=== PATIENT | male | born 1955 | race Caucasian/White ===

== ENCOUNTER → 2016-06-25 12:59 | Outpatient (CLI) | payer OTHER ==
[2013-04-12 08:46] VITALS: BMI 27.2
[~2016-06-25 12:59] MED LIST: ASPIRIN81 MG PO; LASIX20 MG PO; LUNESTA3 MG PO; MULTIPLE VITAMI1 TA1 PO; PLAVIX75 MG PO; RANEXA500 MG PO
[2016-08-05 12:45] VITALS: BMI 29.2
== END | disposition home or self-care (01) ==
LOC: D.US 12:59
DX: M79.605 Pain in left leg (principal); M79.604 Pain in right leg; R20.0 Anesthesia of skin

== ENCOUNTER → 2016-07-28 07:20 | Outpatient (CLI) | payer OTHER ==
[2013-04-12 08:46] VITALS: BMI 27.2
[2016-08-05 12:45] VITALS: BMI 29.2
== END | disposition home or self-care (01) ==
LOC: D.CT 07:20
DX: I70.213 Atherosclerosis of native arteries of extremities with intermittent claudication, bilateral legs (principal)

== ENCOUNTER 2016-08-05 05:00 | Inpatient (IN) | payer OTHER ==
[2016-08-04 15:06] LABS: HEMATOCRIT 46.8 % (42.0-54.0); MCH 34.2 pg (26.0-34.0); MCHC 34.2 g/dL (31.0-37.0); MEAN PLATELET VOLUME 11.1 fL (7.4-10.4); RBC 4.68 10x6/uL (4.20-6.10); RDW 13.4 % (11.5-14.5); WBC 11.4 10x3/uL (4.8-10.8)
[2016-08-04 15:13] LABS: APPEARANCE CLEAR (CLEAR); BILIRUBIN NEGATIVE (NEGATIVE); COLOR YELLOW (YELLOW); GLUCOSE NEGATIVE (NEGATIVE); KETONE NEGATIVE (NEGATIVE); LEUKOCYTE ESTERASE NEGATIVE (NEGATIVE); NITRITE NEGATIVE (NEGATIVE); PROTEIN NEGATIVE (NEGATIVE); UROBILINOGEN NORMAL (NORMAL)
[2016-08-04 15:18] LABS: APTT 30.7 SECONDS (22.8-39.4); INR 0.95 (0.85-1.17); PROTIME 12.5 SECONDS (11.6-15.0)
[2016-08-04 15:24] LABS: ALKALINE PHOSPHATASE 82 U/L (46-116); ALT (SGPT) 28 U/L (10-68); BILIRUBIN - TOTAL 0.76 mg/dL (0.2-1.3); CALC OSMOLALITY 277 mosm/kg (275-300); CALCIUM 9.4 mg/dL (8.5-10.1); CARBON DIOXIDE 26.7 mmol/L (21.0-32.0); CHLORIDE - SERUM 104 mmol/L (98-107); GLUCOSE 94 mg/dL (74-106); POTASSIUM - SERUM 4.4 mmol/L (3.5-5.1); PROTEIN - SERUM 7.7 g/dL (6.4-8.2); SODIUM 140 mmol/L (136-145); UREA NITROGEN 10 mg/dL (7-18); eGFR NON AFRICAN AMERICAN 80 mL/min (90-120)
[2016-08-05] VITALS (20 sets, daily range): BP systolic 100–131; BP diastolic 47–75; Ht 175.3 cm; Wt 89.7 kg
[~2016-08-05] VITALS: Ht 175.3 cm; Wt 89.7 kg
--- NOTE | 2016-08-05 12:13 | NUR ---
RECEIVED TO [facility] VIA BED.
--- NOTE | 2016-08-05 13:40 | NUR ---
AT BEDSIDE, UPDATED BY DR GASTON.
--- NOTE | 2016-08-05 14:30 | NUR ---
PT REPOSITIONED FOR COMFORT. CALL LIGHT PLACED IN REACH.
--- NOTE | 2016-08-05 16:45 | NUR ---
REPOSITIONED IN BED. DINNER TRAY PLACED IN REACH. GROIN DRESSING C/D/I. DENIES NEEDS AT THIS TIME. WILL CONTINUE TO ASSESS.
--- NOTE | 2016-08-05 18:00 | NUR ---
VISITORS AT BEDSIDE. DENIES NEEDS AT THIS TIME. NO ACUTE CHANGES NOTED.
--- NOTE | 2016-08-05 19:20 | NUR ---
REPORT REC'D AND CARE ASSUMED ,REC'D PT SITTING UP IN BED WATCHING TV, AWAKE, ALERT AND ORIENTED X 4, RDLSCL DRSG CDI WITH D51/2NS @ 100CC/HR, LEFT GROIN DRSG CDI NO BLEEDING OR HEMATOMA NOTED, CRITICORE MELCHOR PATENT DRAINING CLEAR YELLOW URINE, BILAT LOWER EXT'S WARM, PP BY DOPPLER, PT DENIES PAIN OR NEEDS, SR UP X 2, BED IN LOW POSITION, CALL LIGHT IN REACH.
--- NOTE | 2016-08-05 21:00 | NUR ---
EVENING MEDS GIVEN, AT BS, UPDATE GIVEN AND QUESTIONS ANSWERED.
--- NOTE | 2016-08-05 21:30 | NUR ---
PT CONCERNED ABOUT CLOTHING LEFT IN OUTPATIENT, ICEBOX MAN NOTIFIED
--- NOTE | 2016-08-05 23:30 | NUR ---
REASSESSMENT COMPLETED, PT SITTING UP IN BED WATCHING TV, VSS, DENIES PAIN OR OTHER NEEDS, VSS.
[2016-08-06] VITALS (12 sets, daily range): BP systolic 101–132; BP diastolic 52–76
--- NOTE | 2016-08-06 00:15 | NUR ---
ROUTINE MED GIVEN, LEFT GROIN DRSG CDI, NO BLEEDING OR HEMATOMA, PP BY DOPPLER
--- NOTE | 2016-08-06 02:00 | NUR ---
NO CHANGES IN STATUS
--- NOTE | 2016-08-06 04:00 | NUR ---
PT ASSISTED TO REPOSITION UP IN BED FOR COMFORT, VSS, WILL CONT TO MONITOR FOR CHANGES.
--- NOTE | 2016-08-06 05:50 | NUR ---
AM LAB DRAWN FROM CVL AND SENT TO LAB
--- NOTE | 2016-08-06 06:00 | NUR ---
NO VISITORS IN AT THIS TIME, OUTPATIENT CALLED REGARDING PT CLOTHING, CLOTHING FOUND WILL RETRIEVE FOR PT.
[2016-08-06 06:24] LABS: MCH 33.3 pg (26.0-34.0); MCHC 33.2 g/dL (31.0-37.0); MCV 100.5 fL (80.0-100.0); RDW 13.6 % (11.5-14.5); WBC 11.3 10x3/uL (4.8-10.8)
[2016-08-06 06:36] LABS: HEMATOCRIT 36.8 % (42.0-54.0); HEMOGLOBIN 12.2 g/dL (13.5-17.5); RBC 3.66 10x6/uL (4.20-6.10)
[2016-08-06 06:42] LABS: ALBUMIN 2.8 g/dL (3.4-5.0); ALKALINE PHOSPHATASE 63 U/L (46-116); ALT (SGPT) 21 U/L (10-68); CALC OSMOLALITY 274 mosm/kg (275-300); CALCIUM 8.2 mg/dL (8.5-10.1); CHLORIDE - SERUM 103 mmol/L (98-107); GLUCOSE 117 mg/dL (74-106); POTASSIUM - SERUM 3.6 mmol/L (3.5-5.1); PROTEIN - SERUM 5.8 g/dL (6.4-8.2); SODIUM 138 mmol/L (136-145); UREA NITROGEN 8 mg/dL (7-18); eGFR NON AFRICAN AMERICAN 80 mL/min (90-120)
--- NOTE | 2016-08-06 07:00 | NUR ---
Received report and assumed care of patient. Patient is currently awake, alert and oriented in bed. Right subclavian CVL with D51/2 @ 100 infusing. CVP zereod and levelized=8. Room air, occasional unproductive cough, [id number] on IS. Sinus rhythm on CM. S1 S2. Duarte cath draining clear yellow urine. Afebrile. Patient denies pain, c/o being uncomfortable and numbness bilateral legs. Left groin access site dressing is CDI, site is soft to touch. Dorsalis Pedis pulses via doppler bilaterally. Feet warm to touch. See shift assessment for all findings.
--- NOTE | 2016-08-06 08:15 | NUR ---
Patient up to chair with moderate assistance. Set up with breakfast tray. at bedside. Call light within reach. No additional needs.
--- NOTE | 2016-08-06 08:45 | NUR ---
in to see patient. Okay to d/c home.
[2016-08-06] MEDS ORDERED: PLAVIX75 MG PO (08:57)
--- NOTE | 2016-08-06 09:51 | NUR ---
Patient ambulated with Tre with PT, tolerated well.
--- NOTE | 2016-08-06 09:55 | NUR ---
Patient up to commode with stand by assist. Voided 200 CC urine.
--- NOTE | 2016-08-06 11:20 | NUR ---
08/06/2016 11:18 DCP: Discharge Planning Patient Name: LUZ URRUTIA Admission Status: Elective Accout number: [id number] Admission Date: 08-05-2016 : 1955 Admission Diagnosis: Attending: JESE Current LOS: 1 Anticipated DC Date: 08-06-2016 Planned Disposition: Home Primary Insurance: [facility] Discharge Planning Comments: DC order rec'd. Spoke with spouse via telephone. Spouse states they live together in a single level home. She reports patient is independent with all ADL's & IADL's, does not use any assistive devices for mobility. He will return home with his . No needs identified or verbalized at this time. Football Pad Repairer: Rocio Salde
--- NOTE | 2016-08-08 11:31 | OP ---
PATIENT NAME: LUZ URRUTIA MEDICAL RECORD: [id number] :51 LOCATION:[facility] ADMISSION DATE:08/05/16 SURGEON: GUILLE GASTON MD DATE OF OPERATION: 08/05/2016 SURGEON: Guille Gaston MD. ANESTHESIA: General endotracheal, Dr. Prasad. OPERATION PERFORMED: Complex endovascular revascularization of his right and left lower extremities. PREOPERATIVE DIAGNOSES: Severe claudication of the lower extremities bilaterally with rest pain. POSTOPERATIVE DIAGNOSES: Severe left iliac artery stenosis of both common and external iliac arteries, severe stenosis of the right superficial femoral artery and in-stent stenosis of the right superficial femoral artery stent, severe stenosis of the posterior tibioperoneal artery and posterior tibial arteries as well as high-grade stenosis in the proximal 1/3 of the anterior tibial artery. INDICATION FOR OPERATION: Severe claudication and rest pain. FINDINGS OF THE OPERATION: The fluoro time of 29 minutes and 8 seconds. Contrast was 267 mL. ESTIMATED BLOOD LOSS: Less than 20 mL. 1. Left retrograde common femoral artery sheath placement, 4-Namibian, 5-Namibian, 7-Namibian long. 2. Left retrograde external iliac arteriogram. 3. Selective right common iliac artery arteriogram. 4. Right common femoral artery arteriogram. 5. Right superficial femoral artery arteriogram. 6. Right popliteal arteriogram. 7. Right posterior tibioperoneal artery trunk arteriogram. 8. Jetstream atherectomy of the posterior tibial artery and posterior tibioperoneal artery trunk. 9. Angioplasty of the posterior tibial and peroneal artery. 10. Drug-eluting stent, right posterior tibial artery and posterior tibioperoneal artery trunk. 11. Angioplasty of the proximal anterior tibial artery. 12. Viabahn stent, 5 x 50, popliteal artery. 13. Jetstream atherectomy of the superficial femoral artery and in-stent stenosis of the proximal popliteal artery. 14. Stent, 6 x 200, in the stent extending to the upper superficial femoral artery. 15. Stent, 6 x 80, in-stent addition to 2 cm distal to the stent. 16. Stent, 8 x 27, aorta and left common iliac artery. 17. Stent, 8 x 27, left external iliac artery. AORTOGRAM: 1. Retrograde left external iliac arteriogram demonstrates severe stenosis of the proximal external iliac artery and high-grade stenosis at the aorta and left common iliac artery. OPERATIVE REPORT [id number] LUZ URRUTIA 2. Right common iliac artery demonstrates diffuse atherosclerosis, but no significant stenotic lesions. 3. Right common femoral arteriogram demonstrates good flow into the profunda and superficial femoral artery. 4. Right superficial femoral arteriogram demonstrates diffuse stenosis throughout the superficial femoral artery with high-grade stenosis in the previously placed stent at the popliteal, superficial femoral artery junction. 5. Popliteal arteriogram demonstrates an open vessel with more severe distal disease and open orifice to the anterior tibial artery. The posterior tibial and peroneal artery trunk was severely and diffusely diseased as well as the takeoff of the peroneal and posterior tibial arteries. 6. Post-Jetstream atherectomy of the posterior tibial and peroneal artery demonstrates multiple areas of intimal disruption and dissections. 7. Angioplasty of posterior tibioperoneal artery demonstrates continued stenosis of the area. 8. Drug-eluting stent of tibial artery and posterior tibioperoneal artery trunk demonstrates excellent flow through the stenotic area of the posterior tibial artery to the ankle with good flow through the peroneal artery as well. 9. Angioplasty of the anterior tibial artery in its proximal 1/3 demonstrates improved flow. Spasm was relieved with papaverine. 10. Viabahn stent placement, right knee and popliteal artery, 5 x 50, demonstrates excellent result, no residual stenosis, good runoff through the trifurcation. 11. Jetstream atherectomy of the superficial femoral artery and in-stent stenosis demonstrates improved flow with continued obstruction and dissection in the stent. A 6 x 200 stent was placed in the superior portion of the stent and superficial femoral artery with good proximal result; however, distally, there was still loose shawnee-intima in the previously placed stent. 12. Status post stenting with a 6 x 80 below the original stent demonstrates excellent flow through the superficial femoral artery through the stents into the posterior tibial artery and peroneal artery trunk. 13. Status post stenting of the aorta and left common iliac artery demonstrates excellent result with no residual stenosis and open aortic orifice. 14. Stent, 8 x 27, in the left external iliac artery demonstrates an excellent result with no residual stenosis. DESCRIPTION OF PROCEDURE: After informed consent and adequate preoperative medication evaluation, the patient was brought to the operating room, placed on the table in the supine position. After induction of general endotracheal anesthesia and application of appropriate monitoring devices, the abdomen, both groins and right leg were prepped and draped in a sterile field, utilizing Betadine scrub, alcohol, and Betadine solution. A Betadine-impregnated drape was also used. Utilizing a micropuncture technique retrogradely through the left common femoral artery, a 4-Namibian sheath was placed. This was exchanged for a 5-Namibian sheath. A retrograde arteriogram demonstrated the anatomy with severe stenosis of the takeoff of the common iliac artery for approximately 2 cm and severe stenosis of the external iliac artery. There is total occlusion of the left hypogastric. Utilizing a rim catheter and Glidewire, the right superficial femoral artery was selected. An exchange was made for a 7-Namibian long sheath that was carefully placed through the stenotic areas on the left and placed in the common iliac artery. Arteriogram demonstrated no stenosis, but diffuse disease in the right common iliac and external iliac artery. The sheath was then advanced to the common femoral artery and arteriogram demonstrated good flow into the profunda and superficial femoral artery. The superficial femoral artery was then selected, cannulated and arteriogram demonstrated diffuse OPERATIVE REPORT [id number] LUZ URRUTIA disease throughout the proximal portion of the superficial femoral artery with high-grade in-stent stenosis. Next, a Prowers wire was placed into the popliteal artery and a 0.035 Quick-Cross was placed into the popliteal artery. Arteriogram demonstrated severe disease in the posterior tibioperoneal artery trunk in the takeoff of the peroneal artery and takeoff of the posterior tibial artery. There was also high-grade stenosis in the proximal anterior tibial artery. The posterior tibioperoneal artery was cannulated and arteriogram demonstrated the severe stenosis in all 3 vessels. A wire was placed into the peroneal artery and a Jetstream atherectomy was performed of the posterior tibioperoneal artery trunk and peroneal artery. There was disrupted intima and dissections with a poor result. Therefore, a Prowers rakesh wire was placed alongside the previous wire and the posterior tibial artery was cannulated which was the larger of the 2 vessels. Utilizing a 4 x 38 drug-eluting stent, the posterior tibial artery and posterior tibioperoneal artery trunk was stented with good flow continuing in the peroneal artery. This wire was left in place in the peroneal artery. The anterior tibial artery was then cannulated and arteriogram demonstrated the severe proximal stenosis. This was dilated with a 3.0 balloon with a good result. Spasm was relieved with papaverine. Attention was then turned toward the popliteal artery. There was disruption of the intima and dissection; therefore, a 5 x 50 Viabahn stent was placed in the popliteal artery. Attention was then turned towards the superficial femoral artery. The Prowers wire was removed and a Jetstream atherectomy was performed of the superficial femoral artery and in-stent stenosis with improved flow, but suboptimal. Utilizing a 6-mm balloon, the stent and artery was angioplastied; however, there was still residual disease. Therefore, a 6 x 200 stent was placed from the proximal portion of the previously placed stent to the proximal superficial femoral artery with a good result. There was a residual disruption in the stent. Therefore, a 6 x 80 stent was placed from the newly placed stent for approximately 2 cm distally into the proximal popliteal artery with an excellent result. Arteriogram demonstrated good flow through these stents with 3-vessel runoff to the foot. Attention was then turned towards the aorta and left common iliac artery. Utilizing a stent, balloon expandable, 8 x 27, was then deployed in the aorta and common iliac artery with a good result. The stent does not protrude into the aorta itself. The external iliac artery was then addressed and an 8 x 27 balloon expandable stent was placed. A retrograde arteriogram demonstrated excellent flow through these stents as well as contrast into the aorta with runoff into the right common iliac artery as well. The catheter sheath and wires were removed and an 8-Namibian Angio-Seal was deployed with good hemostatic results. The patient was given a calculated dose of protamine to reverse the heparin. Hemostasis was assured. The patient had good distal pulses and perfusion. The patient tolerated the procedure well and was transferred to CV ICU in satisfactory condition. TRANSINT:[id number] Voice Confirmation ID: [id number] DOCUMENT ID: [id number] GUILLE GASTON MD at 1131 CC: [id number] DICTATION DATE: 08/05/16 1231 AUTOMATED PROCESS OPERATOR: 08/05/16 1335 DIS IN 08/06/16 [place] [id number] [place] [id number]
--- NOTE | 2016-08-08 11:31 | HP ---
PATIENT: LUZ URRUTIA MEDICAL RECORD: [id number] ACCOUNT: [id number] LOCATION:[facility] D.CV06 : 53 ADMISSION DATE: 08/05/16 HISTORY AND PHYSICAL EXAMINATION NameLUZ URRUTIA (61yo, M) ID# [id number]. Date/Time07/30/2016 09:96YKPYP86 1955Service Dept.NPP[facility] ClinicProviderEDAPRYL GASTON MDInsuranceMed Primary: [facility] () Insurance # : [id number] Referring Provider Name : DORI ESTEVEZ Employer Name : SELF EMPLOYED Prescription: ESI1 - Member is eligible. Chief Complaint Followup: Intermittent claudication due to atherosclerosis of [place] artery of limb Followup: Peripheral arterial occlusive disease s/p CABG 02/07/97 RTC discuss CTA AFRO Patient's Care Team Referring Provider (): DORI ESTEVEZ: [address] [phone], , Corn Miller: KENDALL OSEGUERA MD: [address] [place] [address], [place] [address], , Patient's Pharmacies [facility] [phone] (ERX): [phone] [facility] [id number], , Vitals BP:124/80 sitting R arm 07/30/2016 09:04 amHR:60R/R 07/30/2016 09:04 amHt:5 ft 10 in 07/30/2016 09:00 amWt:198 lbs 07/30/2016 09:04 amBMI:28.4 07/30/2016 09:04 amAllergies Reviewed Allergies NKDAMedications Reviewed Medications Asprin Ec Low Dose 81 mg tablet,delayed release Take 1 tablet(s) every day by oral route.01/15/11 enteredTracie StanleyLunesta 3 mg tablet Take 1 tablet(s) every day by oral route.07/21/16 [facility] RonNitromist 400 mcg/spray translingual aerosol [place] by translingual route.07/21/16 [facility] WilsonRanexa 500 mg tablet,extended release Take 1 tablet(s) twice a day by oral route.07/21/16 [facility] Ronzolpidem 10 mg /24/17 filledMEDCOProblems Reviewed Problems Intermittent claudication due to atherosclerosis of [place] artery of limb - Onset: 07/01/2013 Peripheral arterial occlusive disease - Onset: 07/21/2016 Coronary arteriosclerosis - Onset: 07/21/2016 [place] a recent coronary s tent by Dr. Oseguera. No site of pain at the hernia repair. No reherniation. No evidence of incisional infections. Family History Reviewed Family History Mother- Malignant neoplastic diseasePaternal Grandfather- Malignant neoplastic HISTORY AND PHYSICAL [id number] LUZ URRUTIA diseasepositive for coronary artery disease, colon cancer and type 2 diabetesSocial History Reviewed Social History Cardiology Family history of heart disease?: Y Smoking Status: Current every day smoker Smoker (1 05/04 PPD) High Cholesterol: N High blood pressure: N Overweight: Y Obese: Y Diabetes: N Alcohol intake: None Occupation: retired (Notes: partial disabled) Marital status: Surgical History Reviewed Surgical History Hernia repair w/mesh - 01/14/2011 CABG - 02/07/[address] Wheat 1999 multiple stents placed Past Medical History Reviewed Past Medical History Heart Disease: Y Heart Failure: Y High Blood Pressure: Y Pain in legs when walking: Y Notes: chronic insomnia, ED, LBP, opioid dependence (continuous), anxi ety, hearing loss, CAD, male hypogonadism, LE neuropathy Documents for Discussion N/A Screening None recorded. HPI Peripheral Vascular Disease Reported by patient. Location: calf Quality: cramping; burning; weakness Severity: interferes with normal activity life limiting claudication of the lower extremities ROS ROS as noted in the HPI Physical Exam Patient is a 61-year-old male. Constitutional: General Appearance well nourished and developed and healthy-appearing. Level of Distress NAD. Ambulation ambulating normally. Cardiovascular: Apical Impulse not displaced or no thrill. Heart Auscultation normal s1 and s2; no murmurs, rubs, or gallops; and RRR. Arterial Pulses no abdominal aorta bruits or femoral bruits; popliteal not palpable (nonpalpable bilaterally) and dorsalis pedis not palpable (nonpalpable bilaterally nor posterior tibial); and 2+ bilateral, carotid 2+ bilateral, and femoral 2+ bilateral. Edema no HISTORY AND PHYSICAL [id number] LUZ URRUTIA edema or varicosities. Lungs: Repiratory Effort no dyspnea. Percussion no dullness or flatness and hyperresonance . Auscultation no wheezing, rhonchi, or rales / crackles and breathing sounds normal, good air movement, and CTA except as noted. Abdomen: Bowl Sounds normal. Inspe ction and Palpation no tenderness, guarding, masses, or rebound tenderness and soft and non-distended. Liver non-tender and no hepatomegaly. Spleen non-tender and no splenomegaly. Hernia none palpable. Musculoskeletal System: Gait And Stance normal gait and stance. Digits and Nails normal nails and no cyanosis. Neurologic: Cranial Nerves grossly intact. Reflexes DTRs 2+ bilaterally throughout. Sensation grossly intact. Lymph Nodes: Lymph Nodes no cervical LAD, supraclavicular LAD, axillary LAD, or inguinal LAD. Eyes: Lids and Conjunctivae no discharge or pallor and non-injected. Pupils PERRLA. Cornea grossly intact. EOM EOMI. Lens clear. Sclerae non-icteric. Neck: Neck no masses, enlarged lymph nodes, or carotid bruits and supple and trachea midline. Thyroid no enlargement or nodules and non-tender. Skin: Inspection and Palpation no rash, lesions, ulcers, jaundice, or abnormal nevi. Assessment / Plan severe bilateral peripheral arterial disease Severe proximal left internal iliac artery stenosis Significant right external iliac artery stenosis Significant in-stent stenosis right superficial femoral artery Chronic total occlusion of the left superficial femoral artery 1. Intermittent claudication due to atherosclerosis of [place] artery of limb I70 .219: Atherosclerosis of [place] arteries of extremities with intermittent claudication, unspecified extremity 2. Peripheral arterial occlusive disease I73.9: Peripheral vascular disease, unspecified PERIPHERAL ARTERIAL DISEASE OF THE LEG: CARE INSTRUCTIONS Discussion Notes will need jetstream atherectomy of the right superficial femoral in-stent stenosis Balloon-expandable stent of the right external iliac artery Balloon-expandable stent of the left common iliac artery We'll start with [id number] intervention followed by intervention only chronic total occlusion of the left superficial femoral artery versus femoral-popliteal bypass. Return to Office None recorded. HISTORY AND PHYSICAL [id number] LUZ URRUTIA EDWARD MD at 1131 CC: [id number] DICTATION DATE: 07/30/16 0900 SALON CUSTOMER EXPERIENCE SPECIALIST: RIZWAN 08/03/16 1450 DIS IN 08/06/16 [facility] [address] [place] [address]
== END 2016-08-06 12:15 | disposition home or self-care (01) | DRG 271 ==
LOC: D.CVICU 05:00 → D.SDCHOLD 05:00 → D.CVICU 11:44
PROVIDERS: ADMIT Internal Medicine Cardiovascular Disease
PROC: 047R34Z Dilation of Right Posterior Tibial Artery with Drug-eluting Intraluminal Device, Percutaneous Approach (ICD-10-PCS; principal; 2016-08-05 07:30)
PROC: 04CP3ZZ Extirpation of Matter from Right Anterior Tibial Artery, Percutaneous Approach (ICD-10-PCS; principal; 2016-08-05 07:30)
PROC: 04CR3ZZ Extirpation of Matter from Right Posterior Tibial Artery, Percutaneous Approach (ICD-10-PCS; principal; 2016-08-05 07:30)
PROC: 047P3ZZ Dilation of Right Anterior Tibial Artery, Percutaneous Approach (ICD-10-PCS; principal; 2016-08-05 07:30)
PROC: 047T34Z Dilation of Right Peroneal Artery with Drug-eluting Intraluminal Device, Percutaneous Approach (ICD-10-PCS; principal; 2016-08-05 07:30)
PROC: 04CT3ZZ Extirpation of Matter from Right Peroneal Artery, Percutaneous Approach (ICD-10-PCS; principal; 2016-08-05 07:30)
DX: I70.223 Atherosclerosis of native arteries of extremities with rest pain, bilateral legs (principal); T82.856A Stenosis of peripheral vascular stent, initial encounter; I25.10 Atherosclerotic heart disease of native coronary artery without angina pectoris; I10 Essential (primary) hypertension; Z95.1 Presence of aortocoronary bypass graft; I25.2 Old myocardial infarction; F17.200 Nicotine dependence, unspecified, uncomplicated

== ENCOUNTER 2016-09-07 13:39 | Emergency (ER) | payer OTHER ==
[2016-08-05 12:45] VITALS: BMI 29.2
[2016-09-07 16:31] LABS: BASOPHILS 0.2 % (0-2); HEMATOCRIT 46.7 % (42.0-54.0); HEMOGLOBIN 15.8 g/dL (13.5-17.5); IMMATURE GRANULOCYTES 0.1 % (0-5); MCH 33.8 pg (26.0-34.0); MCHC 33.8 g/dL (31.0-37.0); MEAN PLATELET VOLUME 10.8 fL (7.4-10.4); MONOCYTES 7.9 % (2-11); NEUTROPHILS 55.8 % (40-80); RBC 4.67 10x6/uL (4.20-6.10); RDW 13.1 % (11.5-14.5); WBC 9.2 10x3/uL (4.8-10.8)
[2016-09-07 16:46] LABS: PLATELET COUNT 189 10x3/uL (130-400)
[2016-09-07 16:56] LABS: ALKALINE PHOSPHATASE 97 U/L (46-116); ALT (SGPT) 29 U/L (10-68); BILIRUBIN - TOTAL 0.68 mg/dL (0.2-1.3); CALC OSMOLALITY 284 mosm/kg (275-300); CALCIUM 10.1 mg/dL (8.5-10.1); CARBON DIOXIDE 32.8 mmol/L (21.0-32.0); CHLORIDE - SERUM 106 mmol/L (98-107); CREATININE - SERUM 1.2 mg/dL (0.6-1.3); GLUCOSE 104 mg/dL (74-106); POTASSIUM - SERUM 5.9 mmol/L (3.5-5.1); PROTEIN - SERUM 7.7 g/dL (6.4-8.2); SODIUM 144 mmol/L (136-145); UREA NITROGEN 7 mg/dL (7-18); eGFR NON AFRICAN AMERICAN 65 mL/min (90-120)
[2016-09-07 17:00] LABS: AMYLASE - SERUM 65 U/L (25-115); CREATINE KINASE 143 UL (21-232); LIPASE 157 U/L (73-393)
[2016-09-07 17:10] LABS: TROPONIN-I < 0.017 ng/mL (0.000-0.060)
== END 2016-09-07 18:16 | disposition home or self-care (01) ==
LOC: D.ER 13:39
PROVIDERS: Nurse Practitioner Family
DX: R10.13 Epigastric pain (principal); K59.00 Constipation, unspecified; E86.0 Dehydration; I49.3 Ventricular premature depolarization

== ENCOUNTER → 2016-11-09 15:30 | Outpatient (CLI) | payer OTHER ==
[2016-08-05 12:45] VITALS: BMI 29.2
== END | disposition home or self-care (01) ==
LOC: D.US 15:30 → D.CT 17:00
DX: M54.9 Dorsalgia, unspecified (principal); N50.812 Left testicular pain; N50.811 Right testicular pain; K66.1 Hemoperitoneum; I99.8 Other disorder of circulatory system

== ENCOUNTER 2016-11-12 09:25 | Emergency (ER) | payer OTHER ==
[2016-08-05 12:45] VITALS: BMI 29.2
[2016-11-12 10:33] LABS: BASOPHILS 0 % (0-2); EOSINOPHILS 0.5 % (0-7); HEMATOCRIT 39.7 % (42.0-54.0); HEMOGLOBIN 13.6 g/dL (13.5-17.5); IMMATURE GRANULOCYTES 0.2 % (0-5); LYMPHOCYTES 31.4 % (15-50); MCH 33.7 pg (26.0-34.0); MCHC 34.3 g/dL (31.0-37.0); MCV 98.3 fL (80.0-100.0); MEAN PLATELET VOLUME 11.1 fL (7.4-10.4); MONOCYTES 7.4 % (2-11); NEUTROPHILS 60.5 % (40-80); RBC 4.04 10x6/uL (4.20-6.10); RDW 13.5 % (11.5-14.5); WBC 6.1 10x3/uL (4.8-10.8)
[2016-11-12 10:36] LABS: PLATELET COUNT 123 10x3/uL (130-400)
[2016-11-12 10:46] LABS: ALBUMIN 3.6 g/dL (3.4-5.0); ALKALINE PHOSPHATASE 63 U/L (46-116); ALT (SGPT) 23 U/L (10-68); BILIRUBIN - TOTAL 0.97 mg/dL (0.2-1.3); CALC OSMOLALITY 281 mosm/kg (275-300); CALCIUM 9.6 mg/dL (8.5-10.1); CARBON DIOXIDE 25.5 mmol/L (21.0-32.0); CHLORIDE - SERUM 108 mmol/L (98-107); CREATININE - SERUM 0.9 mg/dL (0.6-1.3); GLUCOSE 106 mg/dL (74-106); POTASSIUM - SERUM 4.7 mmol/L (3.5-5.1); PROTEIN - SERUM 7.2 g/dL (6.4-8.2); SODIUM 143 mmol/L (136-145); UREA NITROGEN 4 mg/dL (7-18); eGFR NON AFRICAN AMERICAN > 90 mL/min (90-120)
[2016-11-12 11:29] LABS: APPEARANCE CLEAR (CLEAR); BILIRUBIN NEGATIVE (NEGATIVE); COLOR STRAW (YELLOW); GLUCOSE NEGATIVE (NEGATIVE); KETONE NEGATIVE (NEGATIVE); LEUKOCYTE ESTERASE NEGATIVE (NEGATIVE); NITRITE NEGATIVE (NEGATIVE); PROTEIN NEGATIVE (NEGATIVE); SPECIFIC GRAVITY 1.005 (1.005-1.020); UROBILINOGEN NORMAL (NORMAL)
== END 2016-11-12 12:16 | disposition home or self-care (01) ==
LOC: D.ER 09:25
PROVIDERS: Nurse Practitioner Family
DX: R10.9 Unspecified abdominal pain (principal)

== ENCOUNTER 2016-11-13 18:43 | Emergency (ER) | payer OTHER ==
[2016-08-05 12:45] VITALS: BMI 29.2
== END 2016-11-13 21:45 | disposition home or self-care (01) ==
LOC: D.ER 18:43
DX: N45.1 Epididymitis (principal)

== ENCOUNTER → 2017-03-02 09:49 | Outpatient (CLI) | payer OTHER ==
[2016-08-05 12:45] VITALS: BMI 29.2
== END | disposition home or self-care (01) ==
LOC: D.CT 09:49
DX: R10.9 Unspecified abdominal pain (principal); R10.2 Pelvic and perineal pain

== ENCOUNTER 2017-06-19 19:22 | Emergency (ER) | payer OTHER ==
[2016-08-05 12:45] VITALS: BMI 29.2
[2017-06-19 19:49] LABS: BASOPHILS 0.3 % (0-2); EOSINOPHILS 1.3 % (0-7); HEMATOCRIT 41.8 % (42.0-54.0); HEMOGLOBIN 14.1 g/dL (13.5-17.5); IMMATURE GRANULOCYTES 0.2 % (0-5); LYMPHOCYTES 49.6 % (15-50); MCH 32.7 pg (26.0-34.0); MCHC 33.7 g/dL (31.0-37.0); MEAN PLATELET VOLUME 10.1 fL (7.4-10.4); MONOCYTES 10.7 % (2-11); NEUTROPHILS 37.9 % (40-80); RBC 4.31 10x6/uL (4.20-6.10); RDW 13.4 % (11.5-14.5); WBC 9.6 10x3/uL (4.8-10.8)
[2017-06-19 19:50] LABS: PLATELET COUNT 177 10x3/uL (130-400)
[2017-06-19 19:51] LABS: APPEARANCE HAZY (CLEAR); BILIRUBIN NEGATIVE (NEGATIVE); COLOR DK YELLOW (YELLOW); GLUCOSE NEGATIVE (NEGATIVE); KETONE NEGATIVE (NEGATIVE); NITRITE NEGATIVE (NEGATIVE); PROTEIN TRACE mg/dL (NEGATIVE); SPECIFIC GRAVITY 1.005 (1.005-1.020); UROBILINOGEN NORMAL (NORMAL)
[2017-06-19 19:55] LABS: AMORPHOUS SEDIMENT <1+ /lpf (NONE SEEN); BACTERIA FEW /hpf (NONE SEEN); GRANULAR CAST 0-5 /lpf (NONE SEEN); WHITE CELLS - URINE 0-5 /hpf (0-5)
[2017-06-19 20:10] LABS: ALBUMIN 4.1 g/dL (3.4-5.0); ANION GAP 13.3 mmol/L (8-16); BILIRUBIN - TOTAL 0.54 mg/dL (0.2-1.3); CALCIUM 9.9 mg/dL (8.5-10.1); CARBON DIOXIDE 33.1 mmol/L (21.0-32.0); CREATININE - SERUM 1.1 mg/dL (0.6-1.3); POTASSIUM - SERUM 4.4 mmol/L (3.5-5.1); PROTEIN - SERUM 7.3 g/dL (6.4-8.2)
== END 2017-06-19 21:14 | disposition home or self-care (01) ==
LOC: D.ER 19:22
PROVIDERS: Emergency Medicine
DX: R10.9 Unspecified abdominal pain (principal); I73.9 Peripheral vascular disease, unspecified; F17.200 Nicotine dependence, unspecified, uncomplicated

== ENCOUNTER 2017-06-29 15:29 | Outpatient (CLI) | payer OTHER ==
--- NOTE | ~2017-06-29 | OP ---
PATIENT NAME: LUZ URRUTIA MEDICAL RECORD: [id number] :51 LOCATION:D.OPS ADMISSION DATE: SURGEON: KENDALL PORTER MD DATE OF OPERATION: 06/30/2017 PROCEDURES: 1. PTCA stent vein graft to the LAD diagonal. 2. Left heart catheterization. 3. Selective coronary angiography. 4. Left ventriculogram. 5. Vein graft angiography. 6. AMBRIZ angiography. INDICATION: Angina and coronary artery disease. PROCEDURE IN DETAIL: After informed consent was obtained and after a detailed explanation of the risks, benefits as well as alternative therapies, the patient elected to proceed with angiogram and angioplasty. The right femoral area was prepped and draped in normal sterile fashion. The right femoral artery was cannulated via modified Seldinger technique with placement of 6-Bengali sheath. All catheters exchanged through this sheath. FINDINGS: Left ventriculogram was performed in the standard 30-degree HERNANDEZ view reveals global hypokinesis throughout all segments. Overall ejection fraction 35%. SELECTIVE CORONARY ANGIOGRAPHY: 1. Left main showed no significant angiographic disease. 2. Left anterior descending has multiple previously placed stents. There is up to 80% in-stent restenosis in the mid vessel. 3. AMBRIZ is grafted to the ramus intermedius. The AMBRIZ is widely patent. Ramus intermedius is widely patent. 4. The circumflex and ramus intermedius are totally occluded at the proximal vessel. 5. There is a vein graft to the LAD diagonal. This has 90% stenosis in the proximal aspect. 6. The right coronary artery is totally occluded. 7. Vein graft to the right coronary artery is totally occluded. PTCA STENT OF THE VEIN GRAFT TO THE LAD DIAGONAL: The stent used was a 4.0 x 30 mm Nito stent. Result was 0% residual stenosis. OVERALL IMPRESSION: Successful percutaneous transluminal coronary angioplasty stent of the vein graft to the left anterior descending diagonal going from 90% initial stenosis to 0% residual. Plan for PTCA stent of the in-stent restenosis of the tanana LAD in the near future. TRANSINT:[id number] Voice Confirmation ID: [id number] DOCUMENT ID: [id number] OPERATIVE REPORT [id number] LUZ URRUTIA KENDALL PORTER MD at 5125 CC: [id number] DICTATION DATE: 06/30/17 0275 CHIEF WHARFINGER: 06/30/17 1216 DEP CLI 06/30/17 [place] [id number] [facility] [place] [address]
--- NOTE | ~2017-06-29 | HEMODYNAMI ---
PATIENT:LUZ URRUTIA MEDICAL RECORD: [id number] : 51 [facility] ADMISSION DATE: 06/29/17 Generatedon:06/30/201711:18 Patient name: LUZ URRUTIA Patient #: [id number] SSN: D OB: 1955 Date of study: 06/30/2017 Page: Of Hemodynamic Procedure Report Patient Data Patient Demographics Procedure consent was obtained First Name: LUZ Gender: Male Last Name: RENAN : 1955 Middle Initial: EBONIE Age: 62 year(s) Patient #: [id number] Race: Unknown Additional ID: [id number] Contact details [address]: [address] [place] [address] [address] State: [place] City: [place] Zip code: [address] Past Medical History Allergies: No known allergies Admission Admission Data Admission Date: 06/29/2017 Admission Time: 15:29 Room #: D.2114 Procedure Procedure Types Cath Procedure Diagnostic Procedure LHC LHC w/Coronaries w/Grafts PCI Procedure AMI/SVG/SPINNERET CLEANER PTCA or Stent SVG-BMS/JENNIFER Initial Miscellaneous Procedures Moderate Sedation up to 15 minutes Procedure Description Procedure Date Procedure Date: 06/30/2017 Procedure Start Time: 10:59 Procedure End Time: 11:17 Procedure Staff Name Function Johnathon Oseguera MD Performing Physician Ilsa Thompson RT Monitor Bib Reyes RN Nurse Allison Hagan RT Scrub Procedure Data Cath Procedure Fluoroscopy Diagnostic fluoroscopy Total fluoroscopy Time: 3.7 time: 3.7 min min Diagnostic fluoroscopy Total fluoroscopy dose: 483 dose: 483 mGy mGy Contrast Material Contrast Material Type Amount (ml) Isovue 300 84 Entry Location Entry Primary Successful Side Size Upsize Upsize Entry Closure Succes sful Closure Location (Fr) 1 (Fr) 2 (Fr) Remarks Device Remarks Femoral Right 5 Fr 6 Fr Exoseal artery Short Estimated blood loss: 10 ml Diagnostic catheters Device Type Used For End Catheter Placement MULTIPACK Pigtail 5 Fr LV Angiography catheter MULTIPACK JL 4.0 5Fr Left Coronary catheter Angiography MULTIPACK 3DRC 5Fr Internal mammary catheter arteriography MULTIPACK 3DRC 5Fr Right Coronary catheter Angiography DIAGNOSTIC AR 1 MOD 5Fr SVG Angiography catheter ([id number]) DIAGNOSTIC AR 1 MOD 5Fr SVG Angiography catheter ([id number]) Procedure Complications No complications Procedure Medications Medication Administration Route Dosage Oxygen NC 2 l/min Lidocaine 2% added to field 20 Heparin Flush Bag added to field 2 bags (1000units/500ml NS) 0.9% NaCl I.V. 100 ml/hr Versed I.V. 1 mg Fentanyl I.V. 50 mcg Versed I.V. 1 mg Fentanyl I.V. 50 mcg Versed I.V. 1 mg Fentanyl I.V. 50 mcg Heparin Bolus I.V. 4000 units Cardene I.C. 300 mcg Hemodynamics Rest Heart Rate: 42 (bpm) Snapshots Pre Cath Intra NCS Post Cath Vital Signs Time Heart Resp SPO2 etCO2 NIBP (mmHg) Rhythm Pain Sedation Rate (ipm) (%) (mmHg) Status Level (bpm) 10:51:39 50 27 100 1.4 139/74(113) NSR 0 (11) 10(A) , No pain 10:55:44 43 24 99 1.4 121/66(101) NSR 0 (11) 10(A) , No pain 10:59:58 46 18 99 0.7 116/59(93) NSR 0 (11) 9(A) , No pain 11:04:12 48 17 100 2.2 103/55(77) NSR 0 (11) 9(A) , No pain 11:08:18 50 16 100 2.2 101/55(83) NSR 0 (11) 9(A) , No pain 11:12:28 49 15 100 3.7 82/44(75) NSR 0 (11) 10(A) , No pain 11:16:32 49 6 99 3.7 81/45(62) NSR 0 (11) 10(A) , No pain Medications Time Medication Route Dose Verified Delivered Reason Notes Effectiveness by by 10:53:07 Oxygen NC 2 Johnathon Mccartney used for l/min Oumar Reyes RN procedure 10:53:17 Lidocaine 2% added 20ml Johnathon Diego for local to vial Oumar Oseguera MD anesthetic field 10:53:23 Heparin Flush added 2 Johnathon Diego used for Bag to bags Oumar Oseguera MD procedure (1000units/500ml field NS) 10:53:32 0.9% NaCl I.V. 100 Johnathon Mccartney Per physician ml/hr Oumar Reyes RN 10:55:05 Fentanyl I.V. 50 Johnathon Buffie for sedation mcg Oumar Reyes RN 10:55:59 Versed I.V. 1 mg Johnathon Azarie for sedation Oumar Reyes RN 11:00:35 Versed I.V. 1 mg Johnathon Buffie for sedation Oumar Reyes RN 11:00:38 Fentanyl I.V. 50 Johnathon Buffie for sedation mcg Oumar Reyes RN 11:03:02 Versed I.V. 1 mg Johnathon Azarie for sedation Oumar Reyes RN 11:03:06 Fentanyl I.V. 50 Johnathon Azarie for sedation mcg Oumar Reyes RN 11:07:16 Heparin Bolus I.V. 4000 Johnathon Mccartney for verifi ed units Oumar Reyes RN anticoagulation with dr oseguera 11:09:11 Cardene I.C. 300 Johnathon Johnathon for mcg Oumar Oseguera MD vasodilation Procedure Log Time Note 10:30:14 Bib Reyes RN sent for patient. Start room use. 10:30:14 Time tracking: Regular hours 10:30:18 Plan of Care:Hemodynamics will remain stable., Cardiac rhythm will remain stable., Comfort level will be maintained., Respiratory function will remain adequate., Patient/ family verbilizes understanding of procedure., Procedure tolerated without complication., Recovers from procedure without complications.. 10:44:22 Patient received from PCU to CCL 2 Alert and oriented. Tansferred to table in Supine position. 10:44:23 Warm blankets applied, and orion hugger turned on for patient comfort. 10:44:23 Correct patient and procedure confirmed by team. 10:44:24 Signed procedure consent form obtained from patient. 10:44:25 ECG and BP/O2 sat monitors applied to patient. 10:44:26 Full Disclosure recording started 10:50:25 Vital chart was started 10:50:34 Rhythm: sinus bradycardia 10:51:50 H&P Date Dictated: 06/29/2017 Within 30 days and on chart., ER History on chart.. 10:51:52 Pre-procedure instructions explained to patient. 10:51:52 Pre-op teaching completed and patient verbalized understanding. 10:51:53 Family in patients room. 10:52:06 Patient NPO since Midnight. 10:52:11 Patient allergic to No known allergies 10:52:14 Is the patient allergic to Iodine/contrast media? No. 10:52:19 Is patient on blood thinner?Yes 10:52:21 ACC The patient was administered the following blood thiners within the last 24 hours: ACCPlavix 10:52:23 Patient diabetic? No. 10:52:26 Previous problem with sedation/anesthesia? No ? 10:52:27 Snore? Yes 10:52:29 Sleep apnea? No 10:52:31 Deviated septum? No 10:52:31 Opens mouth fully? Yes 10:52:32 Sticks out tongue? Yes 10:52:34 Airway obstruction? No ? 10:52:38 Dentures? Yes Out 10:52:42 Pre procedure: right dorsailis pedis pulse 2+ Normal; easily identifiable; not easily obliterated 10:52:44 Patient pain scale 0/10 ?. 10:53:07 Oxygen 2 l/min NC was administered by Bib Reyes RN; used for procedure; 10:53:17 Lidocaine 2% 20ml vial added to field was administered by Johnathon Oseguera MD; for local anesthetic; 10:53:23 Heparin Flush Bag (1000units/500ml NS) 2 bags added to field was administered by Johnathon Oseguera MD; used for procedure; 10:53:32 0.9% NaCl 100 ml/hr I.V. was administered by Bib Reyes RN; Per physician; 10:53:46 IV patent on arrival in left forearm with 0.9% NaCl at [facility]. 10:53:51 Lab results completed and on chart. 10:53:53 Right groin area was prepped with chlora-prep and draped in sterile fashion 10:53:54 Alarms reviewed by R. N. 10:53:55 Sharps counted by scrub and verified by R.N. 10:53:58 Use device set Femoral Dx 10:53:59 ACIST Syringe (14513) opened to sterile field. 10:53:59 Bag Decanter (2002S) opened to sterile field. 10:53:59 Medline Cath Pack ([id number]) opened to sterile field. 10:54:00 SHEATH 5FR [place] (OFF596) opened to sterile field. 10:54:00 DIAGNOSTIC WIRE .035 260cm J wire (373279) opened to sterile field. 10:54:01 ACIST Hand Control (15316) opened to sterile field. 10:54:02 ACIST Manifold (61611) opened to sterile field. 10:54:02 DIAGNOSTIC Multipack 5Fr catheter set (EX4687) opened to sterile field. 10:54:03 Tegaderm 4 x 4 (1626W) opened to sterile field. 10:54:04 PERCUTANEOUS ENTRY 19GA needle opened to sterile field. 10:54:08 Final Timeout: patient, procedure, and site verified with staff and physician. All members of the team are in agreement. 10:54:10 Right groin site verified by team. 10:54:13 Physical assessment completed. ASA score P 2 - A patient with mild systemic disease as per Johnathon Oseguera MD. 10:54:16 Sedation plan: IV Moderate Sedation Medication:Versed, Fentanyl 10:55:03 Baseline sample Acquired. 10:55:05 Fentanyl 50 mcg I.V. was administered by Bib Reyes RN; for sedation; 10:55:59 Versed 1 mg I.V. was administered by Bib Reyes RN; for sedation; 10:57:47 Zero performed for pressure channel P1 10:58:41 Procedure started. 10:59:11 Local anesthetic to right femoral artery with Lidocaine 2% by Johnathon Oseguera MD.INITIAL ACCESS ONLY 10:59:26 A 5 Fr sheath was inserted into the Right Femoral artery 11:00:00 A MULTIPACK Pigtail 5 Fr catheter was advanced over the wire and used for LV Angiography. 11:00:27 LV gram done using HERNANDEZ 11:00:30 Injector settings: Ml/sec: 10, Volume: 20, 11:00:35 Versed 1 mg I.V. was administered by Bib Reyes RN; for sedation; 11:00:38 Fentanyl 50 mcg I.V. was administered by Bib Reyes RN; for sedation; 11:00:59 EF : 30 % 11:01:06 Catheter removed. 11:01:17 A MULTIPACK JL 4.0 5Fr catheter was advanced over the wire and used for Left Coronary Angiography. 11:02:14 Catheter removed. 11:02:17 Use device set OUMAR PCI 11:02:20 INFLATOR Merit BasixCompak (OK9688) opened to sterile field. 11:02:20 SHEATH 6FR [place] (AET029) opened to sterile field. 11:02:45 A MULTIPACK 3DRC 5Fr catheter was advanced over the wire and used for Internal mammary arteriography.to RAMUS 11:03:02 Versed 1 mg I.V. was administered by Bib Reyes RN; for sedation; 11:03:06 Fentanyl 50 mcg I.V. was administered by Bib Reyes RN; for sedation; 11:03:57 A MULTIPACK 3DRC 5Fr catheter was advanced over the wire and used for Right Coronary Angiography. 11:04:00 Catheter removed. 11:05:01 A DIAGNOSTIC AR 1 MOD 5Fr catheter ([id number]) was advanced over the wire and used for SVG Angiography.to LAD?? 11:05:37 A DIAGNOSTIC AR 1 MOD 5Fr catheter ([id number]) was advanced over the wire and used for SVG Angiography.to RCA--Occluded 11:05:41 Catheter removed. 11:06:14 Sheath upsized to a 6 Fr Short. 11:07:02 6 Fr AR 2.0 SH guide catheter was inserted over the wire 11:07:08 CHOICE PT Extra Support 182cm wire ([id number]) opened to sterile field. 11:07:16 Heparin Bolus 4000 units I.V. was administered by Bib Reyes RN; for anticoagulation; verified with dr oseguera 11:07:30 CHOICE PT ES wire advanced. 11:09:11 Cardene 300 mcg I.C. was administered by Johnathon Oseguera MD; for vasodilation; 11:10:35 Inflation Number: 1 A CARLOS RX 4.0 x 34 stent ([id number]) was prepped and advanced across the Aorta Left -> 1st Diag. The stent was deployed at 17 CIARRA for 0:10 (min:sec). 11:12:19 Stent catheter was removed intact over wire. 11:12:19 Wire removed. 11:12:20 Guide catheter removed. 11:12:25 Sheath removed intact; hemostasis achieved with Exoseal to the Right Femoral artery. 11:12:27 Procedure ended.(Physican Out) 11:12:51 Fluoroscopy time 03.70 minutes. 11:12:55 Flurop Dose total: 483 11:12:55 Fluoroscopy dose: 483 mGy 11:13:08 Contrast amount:Isovue 300 84ml. 11:13:09 Sharps counted by scrub and verified by R.N. 11:13:11 Insertion/operative site no bleeding no hematoma. 11:13:18 Post-op/insertion site Right Femoral artery dressed using a 4 x 4 and Tegaderm. 11:13:23 Post right femoral artery:stable, clean and dry 11:13:24 Post Procedure Pulses reassessed and unchanged 11:13:28 Post-procedure physical assessment completed. ASA score P 2 - A patient with mild systemic disease as per Johnathon Oseguera MD. 11:13:33 Post procedure rhythm: unchanged. 11:13:36 Estimated blood loss: 10 ml 11:13:37 Post procedure instruction explained to patient.Patient verbalizes understanding. 11:13:37 Patient needs reinforcement of post procedure teaching. 11:14:11 Procedure type changed to Cath procedure, Diagnostic procedure, LHC, LHC w/Coronaries w/Grafts, PCI procedure, AMI/SVG/SPINNERET CLEANER PTCA or Stent, SVG-BMS/JENNIFER Initial, Miscellaneous Procedures, Moderate Sedation up to 15 minutes 11:14:39 Procedure Complication : No complications 11:15:53 EXOSEAL 6Fr (EX600) opened to sterile field. 11:16:40 GUIDE 6FR AR 1.0 SH catheter ([id number]) opened to sterile field. 11:17:28 Procedure and supply charges have been captured, reviewed, submitted and are correct. 11:17:29 Vital chart was stopped 11:17:32 See physician's report for complete and final results. 11:17:35 Report given to PCU. 11:17:49 Patient transfered to PCU with Bed. 11:17:51 Procedure ended. 11:17:51 Full Disclosure recording stopped 11:18:02 End room use (Document Last) Intervention Summary Intervention Notes Time ActionType Lesion and Equipment Used Action# Pressure Duration Attributes 11:10:35 Place stent Aorta Left CARLOS RX 4.0 x 1 17 00:10 -> 1st Diag 34 stent ([id number]) Device Usage Item Name Manufacture Quantity Catalog Number Hospital Part Current M inimal Lot# / Charge Number Stock Stock Serial# Code ACIST Syringe Acist 1 92740 [id number] 336346 545375 2 0 (91574) Medical Systems Inc Bag Decanter Microtek 1 540603 35377 544222 5 () Medical Inc. Medline Cath Cardinal 1 [id number] 847406 05984 339400 5 Pack Health ([id number]) SHEATH 5FR Terumo 1 HRV695 368881 274061 278282 4 0 [place] (ZSX390) DIAGNOSTIC [facility] [place] 1 855920 738644 336047 521721 3 0 WIRE .035 260cm J wire (397381) ACIST Hand Acist 1 88775 369870 358173 358538 5 Control Medical (90433) Systems Inc ACIST Manifold Acist 1 72492 587794 858530 104907 5 (08351) Medical Systems Inc DIAGNOSTIC Cardinal 1 UA0553 090072 09390 446003 3 0 Multipack 5Fr Health catheter set (YY5606) Tegaderm 4 x 4 3M 1 1626W 730214 747003 611252 5 (1626W) PERCUTANEOUS Cook Medical 1 A11269 239327 490570 5 ENTRY 19GA needle MULTIPACK Cardinal 1 408333 5 Pigtail 5 Fr Health catheter MULTIPACK JL Cardinal 1 637750 5 4.0 5Fr Health catheter INFLATOR Merit Merit 1 SE5938 864303 710937 989326 1 5 Meridian Medical (PB0535) SHEATH 6FR Terumo 1 SRR804 125830 571318 223292 4 0 [place] (LKA028) MULTIPACK 3DRC Cardinal 1 582050 5 5Fr catheter Health DIAGNOSTIC AR Cardinal 1 [id number] 977943 538543 650445 1 5 1 MOD 5Fr Health catheter (618702I) CHOICE PT [place] 1 [id number] 736654 730841 220253 5 Extra Support Scientific 182cm wire ([id number]) CARLOS RX 4.0 x Medtronic 1 [id number] 832836 8211272 386247 5 [id number] 34 stent ([id number]) EXOSEAL 6Fr Cardinal 1 EX600 134812 577722 456475 1 0 (EX600) Health GUIDE 6FR AR Medtronic 1 [id number] 723338 42653 108091 1 1.0 SH catheter ([id number]) Signature Audit [place] Stage Time Signature Unsigned Intra-Procedure 06/30/2017 Ilsa 11:18:15 AM Counts RT(R) Signatures Monitor : Ilsa Signature : Counts RT Date : Time : [address] [address]
--- NOTE | ~2017-06-29 | DS ---
PATIENT:LUZ URRUTIA :51 MEDICAL RECORD: [id number] DISCHARGE SUMMARY ADMISSION DATE: 06/29/17 DISCHARGE DATE: 06/30/17 DISCHARGE DIAGNOSES: 1. Unstable angina. 2. Percutaneous transluminal coronary angioplasty and stent of the vein graft to the left anterior descending and diagonal this admission. 3. Status post coronary artery bypass graft surgery. 4. Hypertension. 5. Hyperlipidemia. HOSPITAL COURSE: Mr. Urrutia presents with unstable anginal symptomatology, found to have critical disease at the vein graft to the LAD and diagonal, found as well to have significant restenosis of the previous stent in the LAD, underwent successful PTCA and stent of the vein graft to the diagonal, was discharged home with the addition of aspirin and Plavix to his medical regimen. He will be brought back in 1 week for PTCA and stent of the restenosis in the LAD. TRANSINT:[id number] Voice Confirmation ID: [id number] DOCUMENT ID: [id number] KENDALL PORTER MD at 1153 CC: [id number] DICTATION DATE: 06/30/17 1115 APRON WORKER: 07/01/17 0509 DEP CLI 06/30/17 [id number] [place] [address]
[2017-06-29 15:54] LABS: BASOPHILS 0.1 % (0-2); EOSINOPHILS 0.9 % (0-7); HEMATOCRIT 40.5 % (42.0-54.0); LYMPHOCYTES 34.4 % (15-50); MCH 33.2 pg (26.0-34.0); MCHC 34.6 g/dL (31.0-37.0); MEAN PLATELET VOLUME 10.2 fL (7.4-10.4); MONOCYTES 9.3 % (2-11); NEUTROPHILS 55.3 % (40-80); PLATELET COUNT 167 10x3/uL (130-400); RBC 4.22 10x6/uL (4.20-6.10); RDW 13.3 % (11.5-14.5); WBC 7.9 10x3/uL (4.8-10.8)
[2017-06-29 16:08] LABS: ALKALINE PHOSPHATASE 70 U/L (46-116); ALT (SGPT) 21 U/L (10-68); BILIRUBIN - TOTAL 0.62 mg/dL (0.2-1.3); CALC OSMOLALITY 279 mosm/kg (275-300); CALCIUM 10.1 mg/dL (8.5-10.1); CARBON DIOXIDE 29.1 mmol/L (21.0-32.0); CHLORIDE - SERUM 104 mmol/L (98-107); CREATININE - SERUM 0.9 mg/dL (0.6-1.3); GLUCOSE 85 mg/dL (74-106); POTASSIUM - SERUM 3.7 mmol/L (3.5-5.1); PROTEIN - SERUM 7.2 g/dL (6.4-8.2); SODIUM 141 mmol/L (136-145); UREA NITROGEN 12 mg/dL (7-18); eGFR NON AFRICAN AMERICAN 90 mL/min (90-120)
[2017-06-29 16:19] LABS: CKMB 1.5 U/L (0.0-3.6); CREATINE KINASE 67 UL (21-232)
[2017-06-29 16:38] LABS: TROPONIN-I < 0.017 ng/mL (0.000-0.060)
[2017-06-29] MEDS ORDERED: AMBIEN10 MG PO (17:35)
[2017-06-29 17:45] VITALS: BP 139/70; BMI 20.7
[2017-06-29 20:56] VITALS: BP 107/42
[2017-06-30 01:20] VITALS: BP 101/52
[2017-06-30 06:40] VITALS: BP 110/60
[2017-06-30 08:04] VITALS: BP 100/44
[2017-06-30 11:04] VITALS: BP 103/51
[2017-06-30] MEDS ORDERED: BAYER CHEWABLE81 MG PO (11:41)
[2017-06-30] MEDS ORDERED: RESTORIL15 MG PO (11:43)
[2017-07-06] MEDS ORDERED: RESTORIL15 MG PO (07:56)
== END 2017-06-30 15:12 | disposition home or self-care (01) ==
LOC: D.ER 15:29 → D.OPS 15:29 → D.M2 16:37 → D.CLR 06-30 11:30 → EDSTATUS 06-30 12:00 → D.OPS 06-30 15:12
PROVIDERS: Emergency Medicine
DX: I25.710 Atherosclerosis of autologous vein coronary artery bypass graft(s) with unstable angina pectoris (principal); I25.110 Atherosclerotic heart disease of native coronary artery with unstable angina pectoris; T82.855A Stenosis of coronary artery stent, initial encounter; I10 Essential (primary) hypertension; E78.5 Hyperlipidemia, unspecified; Z01.812 Encounter for preprocedural laboratory examination

== ENCOUNTER 2017-07-01 20:23 | Observation (INO) | payer OTHER ==
--- NOTE | ~2017-07-01 | OP ---
PATIENT NAME: LUZ URRUTIA MEDICAL RECORD: [id number] :51 LOCATION:D.M2 D.2115 ADMISSION DATE:07/01/17 SURGEON: SANTOS GAMBOA MD DATE OF OPERATION: 07/03/2017 PROCEDURE: Left heart catheterization, selective coronary angiography, right femoral approach. CATHETERS: A 5-Slovenian sheath, 5/4 left and right Kun, 5/4 pig. The procedure was well tolerated and the patient returned to lopez. Sheath was removed. ExoSeal device was placed. FINDINGS: Left ventriculography in the 30-degree HERNANDEZ view shows global hypokinesis, more marked anterior apical hypokinesis, EF reduced 35-40%. CORONARY ANATOMY: LEFT MAIN: Left main fills circumflex. CIRCUMFLEX: Has about an 80% in-stent restenosis. LAD: LAD is totally occluded and fills via the AMBRIZ. RIGHT CORONARY ARTERY: Totally occluded in its mid portion. It can be seen filling via left to right collaterals. SAPHENOUS VEIN GRAFT: Saphenous vein graft to the diagonal, this was intervened on shows acute thrombosis with no flow distally, this was a poor runoff previously. AMBRIZ: This appeared to be AMBRIZ to the diagonal, then retrograde filling the LAD, it is widely patent. IMPRESSION: Acute occlusion secondary to poor distal runoff vessel of the diagonal branch. The patient was started on cardiomyopathic medications. Intervention to restenotic circumflex at a later date via Dr. Oseguera. TRANSINT:[id number] Voice Confirmation ID: [id number] DOCUMENT ID: [id number] SANTOS GAMBOA MD at 0919 CC: [id number] DICTATION DATE: 07/03/17 1318 STILL PUMP OPERATOR: 07/03/17 2253 DIS IN 07/03/17 [id number] [place] [address]
--- NOTE | ~2017-07-01 | HEMODYNAMI ---
PATIENT:LUZ URRUTIA MEDICAL RECORD: [id number] : 51 LOCATION:D. D.2115 ADMISSION DATE: 07/01/17 Generatedon:07/03/201713:09 Patient name: LZU URRUTIA Patient #: [id number] SSN: D OB: 1955 Date of study: 07/03/2017 Page: Of Hemodynamic Procedure Report Patient Data Patient Demographics Procedure consent was obtained First Name: LUZ Gender: Male Last Name: RENAN : 1955 Middle Initial: BEONIE Age: 62 year(s) Patient #: [id number] Race: Unknown Additional ID: [id number] Contact details Address: [address] [place] [address] [address] State: [place] City: [place] Zip code: [address] Past Medical History Allergies: No known allergies Admission Admission Data Admission Date: 07/01/2017 Admission Time: 23:10 Admit Source: Other Room #: D[facility] Procedure Procedure Types Cath Procedure Diagnostic Procedure LHC LHC w/Coronaries w/Grafts Procedure Description Procedure Date Procedure Date: 07/03/2017 Procedure Start Time: 12:59 Procedure End Time: 13:08 Procedure Staff Name Function Eliceo Rich MD Performing Physician Evangelist Shay RN Building Construction Contractor Allison Hagan RT Monitor Ilsa Thompson RT Scrub Evangelist Shay RN Nurse Procedure Data Cath Procedure Fluoroscopy Diagnostic fluoroscopy Total fluoroscopy Time: 1.6 time: 1.6 min min Diagnostic fluoroscopy Total fluoroscopy dose: 185 dose: 185 mGy mGy Contrast Material Contrast Material Type Amount (ml) Isovue 300 57 Entry Location Entry Primary Successful Side Size Upsize Upsize Entry Closure Succes sful Closure Location (Fr) 1 (Fr) 2 (Fr) Remarks Device Remarks Femoral Right 5 Fr Exoseal artery Estimated blood loss: 10 ml Diagnostic catheters Device Type Used For End Catheter Placement MULTIPACK JL 4.0 5Fr Procedure catheter MULTIPACK 3DRC 5Fr Procedure catheter MULTIPACK Pigtail 5 Fr Procedure catheter Procedure Complications No complications Procedure Medications Medication Administration Route Dosage Oxygen NC 2 l/min Heparin Flush Bag added to field 2 bags (1000units/500ml NS) 0.9% NaCl I.V. 100 ml/hr Fentanyl I.V. 50 mcg Versed I.V. 1 mg Fentanyl I.V. 50 mcg Versed I.V. 1 mg Hemodynamics Rest Heart Rate: 57 (bpm) Pressure Samples Time Site Value (mmHg) Purpose Heart Use Rate(bpm) 13:05 LV 120/6,15 EDP 59 Gradients Valve Time Site Site Mean SEP/DFP Peak To Heart Use 1 2 (mmHg) (sec/min) Peak Rate (mmHg) (bpm) Aortic 13:06 LV AO 57 Snapshots Pre Cath Intra NCS Post Cath Vital Signs Time Heart Resp SPO2 etCO2 NIBP (mmHg) Rhythm Pain Sedation Rate (ipm) (%) (mmHg) Status Level (bpm) 12:47:40 56 16 100 126/73(106) NSR 0 (11) 10(A) , No pain 12:52:17 56 16 99 33.3 121/76(93) NSR 0 (11) 10(A) , No pain 12:56:49 52 16 97 34.1 118/66(92) NSR 0 (11) 10(A) , No pain 13:01:26 54 16 98 28.7 112/62(84) NSR 0 (11) 9(A) , No pain 13:06:00 56 17 96 36.3 120/61(87) NSR 0 (11) 9(A) , No pain 13:08:01 56 17 95 38.6 106/62(79) NSR 0 (11) 9(A) , No pain Medications Time Medication Route Dose Verified Delivered Reason Notes Effec tiveness by by 12:48:44 Oxygen NC 2 Eliceo Blanca Per l/min St Roque Shay RN physician 12:48:53 Heparin Flush added 2 Eliceo Blanca used for Bag to bags [facility] Roque Shay RN procedure (1000units/500ml field ULRICH NS) 12:49:01 0.9% NaCl I.V. 100 Eliceo Blanca Per ml/hr [facility] Roque Shay RN physician 12:57:10 Fentanyl I.V. 50 Eliceo Blanca for mcg [facility] Roque Shay RN sedation 12:57:16 Versed I.V. 1 mg Eliceo Blanca for St oRque Shay RN sedation 13:03:17 Fentanyl I.V. 50 Eliceo Blanca [place] [facility] [place] [facility] Shay RN sedation 13:03:21 Versed I.V. 1 mg Eliceo Blanca for [facility] Ro[facility] Shay RN sedation Procedure Log Time Note 12:23:21 Evangelist Shay RN sent for patient. Start room use. 12:38:15 Admit Source: Other 12:38:18 Diagnostic Cath status Elective 12:38:24 Time tracking: Call back 12:38:30 Plan of Care:Hemodynamics will remain stable., Cardiac rhythm will remain stable., Comfort level will be maintained., Respiratory function will remain adequate., Patient/ family verbilizes understanding of procedure., Procedure tolerated without complication., Recovers from procedure without complications.. 12:38:45 Patient received from Med II to CCL 1 Alert and oriented. Tansferred to table in Supine position. 12:41:18 Warm blankets applied, and orion hugger turned on for patient comfort. 12:41:19 Correct patient and procedure confirmed by team. 12:41:21 Signed procedure consent form obtained from patient. 12:41:22 ECG and BP/O2 sat monitors applied to patient. 12:41:29 H&P Date Dictated: 07/02/2017 Emergent; H&P N/A. 12:41:31 Pre-procedure instructions explained to patient. 12:41:34 Family in patients room. 12:41:36 Patient NPO since Breakfast. 12:41:41 Is the patient allergic to Iodine/contrast media? No. 12:41:43 Is patient on blood thinner?Yes 12:41:47 ACC The patient was administered the following blood thiners within the last 24 hours: ACCPlavix 12:41:51 Patient diabetic? No. 12:41:56 Snore? Yes 12:41:58 Sleep apnea? No 12:42:07 Dentures? No ? 12:42:12 Patient pain scale 0/10 ?. 12:42:22 IV patent on arrival in left hand with 0.9% NaCl at KVO. 12:42:27 Lab results completed and on chart. 12:42:32 Right groin area was prepped with chlora-prep and draped in sterile fashion 12:42:34 Alarms reviewed by R. N. 12:42:34 Sharps counted by scrub and verified by R.N. 12:42:36 Physician paged 12:46:46 Vital chart was started 12:46:49 Baseline sample Acquired. 12:46:55 Rhythm: sinus rhythm 12:46:57 Full Disclosure recording started 12:48:44 Oxygen 2 l/min NC was administered by Evangelist Shay RN; Per physician; 12:48:53 Heparin Flush Bag (1000units/500ml NS) 2 bags added to field was administered by Evangelist Shay RN; used for procedure; 12:49:01 0.9% NaCl 100 ml/hr I.V. was administered by Evangelist Shay RN; Per physician; 12:56:18 Physician arrived 12:56:18 --------ALL STOP TIME OUT------ 12:56:20 Final Timeout: patient, procedure, and site verified with staff and physician. All members of the team are in agreement. 12:56:22 Right groin site verified by team. 12:56:26 Physical assessment completed. ASA score P 2 - A patient with mild systemic disease as per Eliceo Rich MD. 12:56:32 Sedation plan: IV Moderate Sedation Medication:Versed, Fentanyl 12:56:40 Use device set Femoral Dx 12:56:42 ACIST Syringe (79817) opened to sterile field. 12:56:42 Bag Decanter (2002) opened to sterile field. 12:56:43 Medline Cath Pack (KHCF08875) opened to sterile field. 12:56:43 SHEATH 5FR [place] (OUN236) opened to sterile field. 12:56:44 DIAGNOSTIC WIRE .035 260cm J wire (921828) opened to sterile field. 12:56:46 ACIST Hand Control (64744) opened to sterile field. 12:56:46 ACIST Manifold (70866) opened to sterile field. 12:56:46 DIAGNOSTIC Multipack 5Fr catheter set (BQ8281) opened to sterile field. 12:56:47 Tegaderm 4 x 4 (1626W) opened to sterile field. 12:56:47 PERCUTANEOUS ENTRY 19GA needle opened to sterile field. 12:57:10 Fentanyl 50 mcg I.V. was administered by Evangelist Shay RN; for sedation; 12:57:11 Zero performed for pressure channel P1 12:57:16 Versed 1 mg I.V. was administered by Evangelist Shay RN; for sedation; 12:59:41 Procedure started. 12:59:59 Local anesthetic to right femoral artery with Lidocaine 2% by Eliceo Rich MD.INITIAL ACCESS ONLY 13:00:15 A 5 Fr sheath was inserted into the Right Femoral artery 13:01:31 A MULTIPACK JL 4.0 5Fr catheter was advanced over the wire and used for Procedure. 13:01:55 LCA angiography performed. 13:02:28 Catheter removed. 13:02:38 A MULTIPACK 3DRC 5Fr catheter was advanced over the wire and used for Procedure. 13:03:17 Fentanyl 50 mcg I.V. was administered by Evangelist Shay RN; for sedation; 13:03:18 RCA angiography performed. 13:03:21 Versed 1 mg I.V. was administered by Evangelist Shay RN; for sedation; 13:04:02 SVG to Diag angiography performed. 13:04:33 AMBRIZ to LAD angiography performed. 13:04:36 Catheter removed. 13:05:06 A MULTIPACK Pigtail 5 Fr catheter was advanced over the wire and used for Procedure. 13:05:10 LV gram done using HERNANDEZ 13:06:08 EF : 35 % 13:06:22 Catheter removed. 13:06:31 EXOSEAL 5Fr (EX500) opened to sterile field. 13:06:50 Sheath removed intact; hemostasis achieved with Exoseal to the Right Femoral artery. 13:06:52 Procedure ended.(Physican Out) 13:07:24 Fluoroscopy time 01.60 minutes. 13:07:28 Fluoroscopy dose: 185 mGy 13:07:28 Flurop Dose total: 185 13:07:33 Contrast amount:Isovue 300 57ml. 13:07:53 Sharps counted by scrub and verified by R.N. 13:07:55 Insertion/operative site no bleeding no hematoma. 13:08:01 Post-op/insertion site Right Femoral artery dressed using a 4 x 4 and Tegaderm. 13:08:03 Post Procedure Pulses reassessed and unchanged 13:08:08 Post-procedure physical assessment completed. ASA score P 2 - A patient with mild systemic disease as per Eliceo Rich MD. 13:08:12 Post procedure rhythm: unchanged. 13:08:14 Estimated blood loss: 10 ml 13:08:16 Post procedure instruction explained to patient.Patient verbalizes understanding. 13:08:24 Procedure and supply charges have been captured, reviewed, submitted and are correct. 13:08:46 Procedure Complication : No complications 13:08:49 Vital chart was stopped 13:08:49 See physician's report for complete and final results. 13:08:51 Report given to Pre/Post Procedure Room. 13:08:54 Patient transfered to Pre/Post Procedure Room with Stretcher. 13:08:57 Procedure ended. 13:08:57 Full Disclosure recording stopped 13:09:00 End room use (Document Last) Device Usage Item Name Manufacture Quantity Catalog Hospital Part Current Minimal Lot# / Number Charge Number Stock Stock Serial# Code ACIST Acist 1 58926 274969 950250 308883 20 Syringe Medical (36082) Systems Inc Bag Decanter Microtek 1 2001S 870471 18456 305919 5 (2001S) Medical Inc. Medline Cath Cardinal 1 [id number] 339089 82742 487061 5 Pack Health ([id number]) SHEATH 5FR Terumo 1 CGZ751 737116 954938 938536 40 [place] (SDJ020) DIAGNOSTIC St [place] 1 571166 741704 439061 826497 30 WIRE .035 260cm J wire (799021) ACIST Hand Acist 1 85209 147894 472162 552333 5 Control Medical (43933) Systems Inc ACIST Acist 1 95452 503082 284790 037746 5 Manifold Medical (18397) Systems Inc DIAGNOSTIC Cardinal 1 UU6561 503624 57159 900355 30 Multipack Health 5Fr catheter set (NY5569) Tegaderm 4 x 3M 1 1626W 162416 213091 700617 5 4 (1626W) PERCUTANEOUS Cook Medical 1 X63785 528148 641131 5 ENTRY 19GA needle MULTIPACK JL Cardinal 1 066194 5 4.0 5Fr Health catheter MULTIPACK Cardinal 1 821486 5 3DRC 5Fr Health catheter MULTIPACK Cardinal 1 082363 5 Pigtail 5 Fr Health catheter EXOSEAL 5Fr Cardinal 1 EX500 838950 696030 759254 10 (EX500) Health Signature Audit [place] Stage Time Signature Unsigned Intra-Procedure 07/03/2017 Allison Hagan 1:09:36 PM RT(R) Signatures Monitor : Allison Hagan Signature : RT Date : Time : [place] [id number] [facility] [place] [address]
--- NOTE | ~2017-07-01 | EC ---
PATIENT:LUZ URRUTIA DATE OF SERVICE: 07/01/17 SEX: M MEDICAL RECORD: [id number] DATE OF : 51 LOCATION:D. D.211 AGE OF PATIENT: 62 ADMISSION DATE: 07/01/17 REFERRING PHYSICIAN: INTERPRETING PHYSICIAN: JOSIE LEY MD ECHOCARDIOGRAM REPORT ECHO CHARGES 4 ECHO COMPLETE CLINICAL DIAGNOSIS: CHEST PAIN ECHOCARDIOGRAPHIC MEASUREMENTS (adult normal given) AC root (d.<3.7cm) cm LV Septum d (<1.2 cm> 1.6 cm Valve Excursion cm LV Septum (systole) 1.6 cm Left Atria (s.<4.0cm> 3.9 cm LVPW d(<1.2cm) 1.7 cm RV (d.<2.3cm) 3.4 cm LVPW (sytole) 1.4 cm LV diastole(<5.6CM) 5.6 cm MV E-F(>70mm/sec) cm LV systole 4.2 cm LVOT Diameter 2.3 cm MV exc.(>10mm) cm Est.ejection fraction (50-75%) % Pericardial Effusion N DOPPLER: LVIT cm/sec A 94.0 cm/sec E 87.0 cm/sec LA cm/sec RVSP 23 mmHg LVOT 116 cm/sec AOP1/2T m/s Asc. Ao 142 cm/sec RVOT 55 cm/sec RA cm/sec PA 123 cm/sec AV Gradient Peak 8.09 mmHg AV Mean 3.86 mmHg AV Area 2.9 cm MV Gradient Peak 3.55 mmHg MV Mean 1.17 mmHg MV Area cm COMMENTS: Range Operator: [place] LIU Hand Profiler: Colleen Ley TAPE# PACS DATE OF SERVICE: 07/02/2017 PROCEDURE: Transthoracic echocardiogram. FINDINGS: 1. The left ventricle has moderate concentric left ventricular hypertrophy. Inflow characteristics consistent with diastolic dysfunction. The patient's overall ejection fraction is 45%. 2. The left atrium is normal size, normal function. 3. The aortic valve is normal. ECHOCARDIOGRAM REPORT [id number] LUZ URRUTIA 4. The mitral valve has mild mitral regurgitation, otherwise normal structurally. 5. The tricuspid valve has normal structure with mild tricuspid regurgitation. 6. The PA pressure is 23 mmHg. 7. The right ventricle and the right atrium have mild dilatation with normal structure. CONCLUSIONS: The patient has evidence of hypertensive heart disease. There is no evidence of significant wall motion abnormalities. There is mild reduction in systolic function with ejection fraction 45% to 50%. TRANSINT:[id number] Voice Confirmation ID: [id number] DOCUMENT ID: [id number] JOSIE LEY MD at 1315 CC: [id number] DICTATION DATE: 07/02/172112 [employer] SALES CONSULTANT: 07/03/17 0116 ADM IN [facility] [address] [place] [address]
[~2017-07-01 20:23] MED LIST changes: +AMBIEN10 MG PO; +BAYER CHEWABLE81 MG PO; +RESTORIL15 MG PO
[2017-07-01 20:58] LABS: BASOPHILS 0.1 % (0-2); EOSINOPHILS 0.9 % (0-7); HEMATOCRIT 39.1 % (42.0-54.0); HEMOGLOBIN 13.4 g/dL (13.5-17.5); IMMATURE GRANULOCYTES 0.1 % (0-5); LYMPHOCYTES 37.5 % (15-50); MCH 32.9 pg (26.0-34.0); MCHC 34.3 g/dL (31.0-37.0); MCV 96.1 fL (80.0-100.0); MEAN PLATELET VOLUME 9.9 fL (7.4-10.4); MONOCYTES 9.1 % (2-11); NEUTROPHILS 52.3 % (40-80); PLATELET COUNT 150 10x3/uL (130-400); RBC 4.07 10x6/uL (4.20-6.10); RDW 13.3 % (11.5-14.5)
[2017-07-01 21:13] LABS: ALBUMIN 3.8 g/dL (3.4-5.0); ALKALINE PHOSPHATASE 62 U/L (46-116); ALT (SGPT) 21 U/L (10-68); CALC OSMOLALITY 287 mosm/kg (275-300); CALCIUM 8.5 mg/dL (8.5-10.1); CARBON DIOXIDE 28.8 mmol/L (21.0-32.0); CHLORIDE - SERUM 106 mmol/L (98-107); CREATININE - SERUM 0.9 mg/dL (0.6-1.3); GLUCOSE 125 mg/dL (74-106); POTASSIUM - SERUM 3.6 mmol/L (3.5-5.1); PROTEIN - SERUM 6.7 g/dL (6.4-8.2); SODIUM 144 mmol/L (136-145); UREA NITROGEN 13 mg/dL (7-18); eGFR NON AFRICAN AMERICAN 90 mL/min (90-120)
[2017-07-01 21:24] LABS: CHOL - HDL RATIO 3.1 ratio (2.3-4.9); CHOLESTEROL, TOTAL 190 mg/dL (0-200); CKMB 1.3 U/L (0.0-3.6); CREATINE KINASE 62 UL (21-232); HDL CHOLESTEROL 61 mg/dL (32-96); LDL CHOLESTEROL 107 mg/dL (0-100); LDL-HDL RATIO 1.8 ratio (1.5-3.5); TRIGLYCERIDE 113 mg/dL (30-200); TROPONIN-I < 0.017 ng/mL (0.000-0.060)
[2017-07-02] VITALS (7 sets, daily range): BP systolic 92–122; BP diastolic 47–80; BMI 20.7
[2017-07-02 04:40] LABS: TROPONIN-I 0.985 ng/mL (0.000-0.060)
[2017-07-02 10:18] LABS: CKMB 69.2 U/L (0.0-3.6); CREATINE KINASE 455 UL (21-232)
[2017-07-02 10:19] LABS: TROPONIN-I 5.659 ng/mL (0.000-0.060)
[2017-07-02 15:34] LABS: CKMB 76.9 U/L (0.0-3.6); CREATINE KINASE 506 UL (21-232)
[2017-07-02 15:38] LABS: TROPONIN-I 8.693 ng/mL (0.000-0.060)
[2017-07-03] VITALS: BP 127/55
[2017-07-03 04:00] VITALS: BP 86/47
[2017-07-03 07:46] VITALS: BP 100/61
[2017-07-03 10:46] LABS: BASOPHILS 0.1 % (0-2); HEMATOCRIT 41.2 % (42.0-54.0); HEMOGLOBIN 13.9 g/dL (13.5-17.5); IMMATURE GRANULOCYTES 0.1 % (0-5); LYMPHOCYTES 25.5 % (15-50); MCH 33.2 pg (26.0-34.0); MCHC 33.7 g/dL (31.0-37.0); MEAN PLATELET VOLUME 10.3 fL (7.4-10.4); MONOCYTES 7.7 % (2-11); NEUTROPHILS 65.6 % (40-80); PLATELET COUNT 143 10x3/uL (130-400); RBC 4.19 10x6/uL (4.20-6.10); RDW 13.4 % (11.5-14.5); WBC 7.6 10x3/uL (4.8-10.8)
[2017-07-03 10:47] LABS: MCV 98.3 fL (80.0-100.0)
[2017-07-03 11:05] LABS: CALC OSMOLALITY 281 mosm/kg (275-300); CALCIUM 9.1 mg/dL (8.5-10.1); CARBON DIOXIDE 31.8 mmol/L (21.0-32.0); CHLORIDE - SERUM 104 mmol/L (98-107); CREATININE - SERUM 0.9 mg/dL (0.6-1.3); GLUCOSE 92 mg/dL (74-106); SODIUM 142 mmol/L (136-145); UREA NITROGEN 11 mg/dL (7-18); eGFR NON AFRICAN AMERICAN 90 mL/min (90-120)
[2017-07-03 11:07] LABS: POTASSIUM - SERUM 4.6 mmol/L (3.5-5.1)
[2017-07-03] MEDS ORDERED: COREG 3.1253.125 MG PO (14:22)
[2017-07-03] MEDS ORDERED: XANAX0.5 MG PO (14:24)
[2017-07-06] MEDS ORDERED: RESTORIL15 MG PO (07:56)
[2017-08-26 07:48] VITALS: BMI 20.7
== END 2017-07-03 17:15 | disposition home or self-care (01) ==
LOC: D.ER 20:23 → D.M2 23:10 → OBSVTIME 23:10 → D.M2 07-03 17:15
PROVIDERS: Family Medicine; Internal Medicine Interventional Cardiology
DX: I25.810 Atherosclerosis of coronary artery bypass graft(s) without angina pectoris (principal); Z95.5 Presence of coronary angioplasty implant and graft; Z95.1 Presence of aortocoronary bypass graft; T82.855A Stenosis of coronary artery stent, initial encounter; Y83.8 Other surgical procedures as the cause of abnormal reaction of the patient, or of later complication, without mention of misadventure at the time of the procedure

== ENCOUNTER → 2017-07-06 07:39 | Outpatient (CLI) | payer OTHER ==
--- NOTE | ~2017-07-06 | OP ---
PATIENT NAME: LUZ URRUTIA MEDICAL RECORD: [id number] :51 LOCATION:D.CAT ADMISSION DATE: SURGEON: KENDALL PORTER MD DATE OF OPERATION: 07/06/2017 PROCEDURES: 1. PTCA stent LAD. 2. Selective coronary angiography. INDICATION: Angina and coronary artery disease. PROCEDURE IN DETAIL: After informed consent was obtained and after detailed explanation of risks, benefits as well as alternative therapies, the patient elected to proceed with angiogram and angioplasty. The right femoral area had a preexisting sheath from aortofemoral runoff. All catheters exchanged through this sheath. FINDINGS: The left anterior descending has previously placed stent of about 80% in-stent restenosis. Distally this was addressed with a 3.0 x 18 and 2.5 x 12 both [place] stents. Result was 0% residual stenosis. OVERALL IMPRESSION: Successful percutaneous transluminal coronary angioplasty stent of the left anterior descending going from 80% initial stenosis to 0% residual. TRANSINT:[id number] Voice Confirmation ID: [id number] DOCUMENT ID: [id number] KENDALL PORTER MD at 1153 CC: [id number] DICTATION DATE: 07/06/17 1029 ELECTRICIAN BUS: 07/06/17 1150 DEP CLI 07/06/17 [place] [address] [place] [address]
--- NOTE | ~2017-07-06 | OP ---
PATIENT NAME: LUZ URRUTIA MEDICAL RECORD: [id number] :51 LOCATION:D.CAT ADMISSION DATE: SURGEON: KENDALL PORTER MD DATE OF OPERATION: 07/06/2017 PROCEDURES: 1. Aortofemoral runoff. 2. Abdominal aortography. INDICATION: Claudication and peripheral vascular disease. PROCEDURE IN DETAIL: After informed consent was obtained and after a detailed explanation of risks, benefits as well as alternative therapies, the patient elected to proceed with angiogram. The right femoral area was prepped and draped in normal sterile fashion. The right femoral artery was cannulated via modified Seldinger technique with placement of 5-Burkin[place] sheath. All catheters exchanged through this sheath. FINDINGS: The abdominal aortography was performed. The catheter was pulled down for aortofemoral runoff. Abdominal aortography reveals no significant abdominal aortic disease. No dissection or aneurysm formation. No renal artery stenosis. RIGHT LEG: A. Iliac: The common internal and external iliacs have ylab-ye-tkrsixnh irregularities, but no flow-limiting stenosis. B. Femoral system: The common and deep femoral are widely patent. The superficial femoral has a series of previously placed stents, these are patent with up to 50% in-stent restenosis, but no flow-limiting stenosis. C. Popliteal and infrapopliteal vessels: The popliteal had a previously placed stent. This is widely patent. Infrapopliteal melchor there is total occlusion of the anterior tibial. There is a stent in the peroneal that is patent. The peroneal and posterior tibial are patent, but diffusely diseased, but there is 2-vessel runoff to the foot. LEFT LEG: A. Iliac: The common iliac has previously placed stent. This is widely patent. External iliac and internal iliacs have moderate irregularities, but are widely patent. B. Femoral system: The common and deep femoral are widely patent. Superficial femoral has a long area of total occlusion from the proximal aspect of this vessel reconstitutes via collaterals off the deep femoral and the extreme distal aspect. There is a lumen suitable for grafting distally. C. Popliteal and infrapopliteal vessels. There is patency of the popliteal. It appears that there is 2-vessel runoff to the posterior tibial and peroneal although diffusely diseased. OVERALL IMPRESSION: Claudication of the left leg secondary to a long total occlusion of the left SFA. This would be amenable to femoral popliteal bypass if the patient so chooses. TRANSINT:[id number] Voice Confirmation ID: [id number] DOCUMENT ID: [id number] OPERATIVE REPORT [id number] LUZ URRUTIA JEFFREY MD at 1153 CC: [id number] DICTATION DATE: 07/06/17 1028 SPARE HAND CARDING: 07/06/17 1149 DEP CLI 07/06/17 [place] [id number] [place] [address]
--- NOTE | ~2017-07-06 | HP ---
PATIENT: LUZ URRUTIA MEDICAL RECORD: [id number] ACCOUNT: [id number] LOCATION:[place] : 51 ADMISSION DATE: 07/06/17 HISTORY AND PHYSICAL EXAMINATION ADMITTING DIAGNOSES: 1. Angina. 2. Coronary artery disease. 3. Recent percutaneous transluminal coronary angioplasty stent LAD diagonal vein graft with concomitant disease of the LAD itself. 4. Hypertension. 5. Hyperlipidemia. 6. Peripheral vascular disease. 7. Claudication. HISTORY OF PRESENT ILLNESS: Mr. Urrutia presents with continued anginal symptomatology as well as claudication, left leg greater than right. He has a history of coronary artery disease, multivessel PTCA stent, CABG, and does have known in-stent restenosis of LAD that is non-grafted LAD. REVIEW OF SYSTEMS: The patient reports easy bruising but reports no swollen glands. The patient reports no fever, no night sweats, no significant weight gain, no significant weight loss. No significant exercise tolerance. The patient reports no dry eyes, no irritation, no vision change. Patient reports no difficulty hearing and no ear pain. Patient reports no frequent nose bleeds or nose and sinus problems. Patient reports on arm pain on exertion. No shortness of breath while lying down. No history of heart murmur. Patient reports no cough, no wheezing or coughing up blood. Patient reports no abdominal pain, no vomiting. Normal appetite. No diarrhea and not vomiting blood. No nausea and no constipation. Patient reports no incontinence. No difficulty urinating. No hematuria. No increased frequency. Patient reports no muscle aches. No weakness, no arthralgias, no back pain. No swelling of the extremities. Patient reports no abnormal mole, no jaundice, no rashes. Reports no loss of consciousness. No weakness and no numbness. No seizures, dizziness, or headaches. The patient reports no depression, no sleep disturbance, feeling safe in a relationship and no alcohol abuse. Patient reports on fatigue. Reports no runny nose or sinus pressure. No itching, no hives, and no frequent sneezing. PHYSICAL EXAMINATION: GENERAL APPEARANCE: Well-nourished, well-developed, appears stated age. Level of distress, comfortable. PSYCHIATRIC: Mental status, alert, normal affect. Orientation, oriented to time, place and person. EYES: Lids and conjunctiva, noninjected. No discharge, no pallor. ENT: Lips, teeth, gums, normal dentition. Oropharynx, no cyanosis, no pallor. NECK: Carotid arteries, bilateral normal upstroke, no bruits, no thrills. JUGULAR VEINS: No jugular venous pressure or distention. CERVICAL LYMPH NODES: Nontender, nonenlarged. THYROID: Not enlarged. Nontender. No nodules. LUNGS: Respiratory effort, unlabored. CHEST: Normal curvature. No thoracic deformity. No chest wall tenderness. Percussion, resonant. Auscultation, clear. No wheezes, no rales, no rhonchi. CARDIOVASCULAR: Precordial exam, nondisplaced. No heaves or pericardial thrills. Rate and rhythm, regular. Heart sounds, normal S1, normal S2. No S3, HISTORY AND PHYSICAL [id number] LUZ URRUTIA no gallop, no rub. Systolic murmur, not heard. Diastolic murmur, not heard. EXTREMITIES: No cyanosis, no edema. Peripheral pulses, full and equal in all extremities, except as noted. No bruits appreciated. ABDOMEN: Soft, nondistended. Normal aorta. No bruit. Nontender. No masses. Liver, nontender, no hepatomegaly. Spleen, nontender, no splenomegaly. MUSCULOSKELETAL: No joint tenderness. No joint swelling. No erythema. NEUROLOGICAL: Normal gait, normal strength, normal tone. SKIN: Warm and dry. OVERALL IMPRESSION: Anginal symptomatology with significant disease of the left anterior descending. We will proceed with percutaneous transluminal coronary angioplasty stent of the LAD. TRANSINT:[id number] Voice Confirmation ID: [id number] DOCUMENT ID: [id number] KENDALL PORTER MD at 1153 CC: [id number] DICTATION DATE: 07/06/17 0947 HUMAN RESOURCES HR REPRESENTATIVE: 07/06/17 1011 [facility] CLI 07/06/17 [place] [id number] [place] [address]
--- NOTE | ~2017-07-06 | HEMODYNAMI ---
PATIENT:LUZ URRUTIA MEDICAL RECORD: [id number] : 51 LOCATION:[facility] ADMISSION DATE: 07/06/17 Generatedon:07/06/201710:20 Patient name: LUZ URRUTIA Patient #: [id number] SSN: [id number] : 1955 Date of study: 07/06/2017 Page: Of Hemodynamic Procedure Report Patient Data Patient Demographics Procedure consent was obtained First Name: LUZ Gender: Male Last Name: RENAN : 1955 [facility] Initial: EBONIE Age: 62 year(s) Patient #: [id number] Race: SSN: [id number] Additional ID: [id number] Contact details Address: [address] [place] [address] [address] State: [place] City: [place] Zip code: [address] Past Medical History Allergies: No known allergies Admission Admission Data Admission Date: 07/06/2017 Admission Time: 7:39 Arrival Date: 07/06/2017 Arrival Time: 10:00 Admit Source: Other Insurance Payor: Private health insurance Lab Results Lab Result Date: 07/06/2017 Lab Result Time: 0:00 Biochemistry Name Units Result Min Max BUN mg/dl 9 --(*---)-- 7 18 Creatinine mg/dl 0.9 --(-*--)-- 0.6 1.3 CBC Name Units Result Min Max Hemoglobin g/dl 14.9 --(-*--)-- 13.5 17.5 Procedure Procedure Types Cath Procedure Diagnostic Procedure Sedation Charges Moderate Sedation up to 15 minutes PCI Procedure Coronary Stent Coronary Stent Initial Peripheral Cath Diagnostic Procedure Cath Peripheral Ztshu-Mfyakwb-Dnd-Off Procedure Description Procedure Date Procedure Date: 07/06/2017 Procedure Start Time: 10:03 Procedure End Time: 10:19 Procedure Staff Name Function Johnathon Oseguera MD Performing Physician Allison Hagan RT Monitor Chanelle Kirk RT Scrub Melquiades Brown RN Nurse Procedure Data Cath Procedure Fluoroscopy Diagnostic fluoroscopy Total fluoroscopy Time: 3.5 time: 3.5 min min Diagnostic fluoroscopy Total fluoroscopy dose: 416 dose: 416 mGy mGy Contrast Material Contrast Material Type Amount (ml) Isovue 300 104 Entry Location Entry Primary Successful Side Size Upsize Upsize Entry Closure Succes sful Closure Location (Fr) 1 (Fr) 2 (Fr) Remarks Device Remarks Femoral Right 6 Fr Exoseal artery Short Estimated blood loss: 10 ml Diagnostic catheters Device Type Used For End Catheter Placement DIAGNOSTIC UF 5Fr Procedure catheter ([id number]) Procedure Complications No complications Procedure Medications Medication Administration Route Dosage 0.9% NaCl I.V. 100 ml/hr Oxygen NC 2 l/min Heparin Flush Bag added to field 2 bags (1000units/500ml NS) Lidocaine 2% added to field 20 Versed I.V. 2 mg Fentanyl I.V. 100 mcg Versed I.V. 2 mg Heparin Bolus I.V. 4000 units Hemodynamics Rest HGB: 14.9 (g/dl) Heart Rate: 62 (bpm) Snapshots Pre Cath Intra NCS Post Cath Vital Signs Time Heart Resp SPO2 etCO2 NIBP (mmHg) Rhythm Pain Sedation Rate (ipm) (%) (mmHg) Status Level (bpm) 9:52:34 53 18 100 20.2 143/85(125) NSR 0 (11) 10(A) , No pain 9:56:48 62 12 100 15.6 122/79(88) NSR 0 (11) 10(A) , No pain 10:00:54 55 15 100 20.1 123/76(104) NSR 0 (11) 10(A) , No pain 10:05:06 46 15 100 20.9 106/61(78) NSR 0 (11) 10(A) , No pain 10:09:14 45 14 100 0 105/54(76) NSR 0 (11) 10(A) , No pain 10:13:22 47 19 100 35.8 96/53(67) NSR 0 (11) 10(A) , No pain 10:17:29 46 11 100 37.3 98/44(70) NSR 0 (11) 10(A) , No pain Medications Time Medication Route Dose Verified Delivered Reason Notes Effectiveness by by 9:52:02 0.9% NaCl I.V. 100 Melquiades Melquiades Per physician ml/hr Stephanie Brown RN RN 9:52:12 Oxygen NC 2 Melquiades Melquiades Per physician l/min Stephanie Brown RN RN 9:52:24 Heparin Flush added 2 Melquiades Melquiades used for Bag to bags Stephanie Brown procedure (1000units/500ml [facility] RN RN NS) 9:53:12 Lidocaine 2% added 20ml Melquiades Melquiades for local to vial Stephanie Brown anesthetic RN RN 9:59:11 Versed I.V. 2 mg Melquiades Melquiades for sedation Stephanie Brown RN RN 9:59:22 Fentanyl I.V. 100 Melquiades Melquiades for sedation mcg Stephanie Brown RN RN 10:03:14 Versed I.V. 2 mg Melquiades Melquiades for sedation Stephanie Brown RN RN 10:10:59 Heparin Bolus I.V. 4000 Melquiades Melquiades for units Stephanie Brown anticoagulation RN green building architect Log Time Note 9:30:21 Allison JOAQUIN(R) sent for patient. Start room use. 9:38:04 Informed consent obtained and on chart 9:39:13 Admit Source: Other 9:39:15 Arrival Date: 07/06/2017 10:00:00 AM 9:39:24 Insurance Payor : Private health insurance 9:41:16 Lab Result : Hemoglobin 14.9 g/dl 9:41:16 Lab Result : BUN 9 mg/dl 9:41:16 Lab Result : Creatinine 0.9 mg/dl 9:41:27 Time tracking: Regular hours 9:41:32 Plan of Care:Hemodynamics will remain stable., Cardiac rhythm will remain stable., Comfort level will be maintained., Respiratory function will remain adequate., Patient/ family verbilizes understanding of procedure., Procedure tolerated without complication., Recovers from procedure without complications.. 9:47:24 Patient received from Pre/Post Procedure Room to CCL 2 Alert and oriented. Tansferred to table in Supine position. 9:47:25 Warm blankets applied, and orion hugger turned on for patient comfort. 9:47:26 Correct patient and procedure confirmed by team. 9:47:28 ECG and BP/O2 sat monitors applied to patient. 9:47:45 Baseline sample Acquired. 9:47:56 H&P Date Dictated: 07/06/2017 Within 30 days and on chart., H&P Addendum completed by physician on day of procedure. (MUST COMPLETE FOR ALL OUTPATIENTS). 9:47:58 Pre-procedure instructions explained to patient. 9:48:01 Family in waiting room. 9:48:05 Patient NPO since Midnight. 9:48:12 Patient allergic to No known allergies 9:48:15 Is the patient allergic to Iodine/contrast media? No. 9:48:17 Is patient on blood thinner?Yes 9:48:21 ACC The patient was administered the following blood thiners within the last 24 hours: ACCPlavix 9:48:23 Patient diabetic? No. 9:48:29 Snore? Yes 9:48:30 Sleep apnea? No 9:48:33 Airway obstruction? No ? 9:48:46 IV patent on arrival in left hand with 0.9% NaCl at [facility]. 9:48:51 Lab results completed and on chart. 9:48:55 Bilateral groins area was prepped with chlora-prep and draped in sterile fashion 9:48:56 Alarms reviewed by R. N. 9:48:57 Sharps counted by scrub and verified by R.N. 9:51:38 Vital chart was started 9:52:02 0.9% NaCl 100 ml/hr I.V. was administered by Melquiades Brown RN; Per physician; 9:52:12 Oxygen 2 l/min NC was administered by Melquiades Brown RN; Per physician; 9:52:24 Heparin Flush Bag (1000units/500ml NS) 2 bags added to field was administered by Melquiades Brown RN; used for procedure; 9:53:12 Lidocaine 2% 20ml vial added to field was administered by Melquiades Brown RN; for local anesthetic; 9:58:50 Physician arrived 9:58:51 --------ALL STOP TIME OUT------ 9:58:53 Final Timeout: patient, procedure, and site verified with staff and physician. All members of the team are in agreement. 9:58:56 Bilateral groins site verified by team. 9:59:00 Physical assessment completed. ASA score P 2 - A patient with mild systemic disease as per Johnathon Oseguera MD. 9:59:06 Sedation plan: IV Moderate Sedation Medication:Versed, Fentanyl 9:59:11 Versed 2 mg I.V. was administered by Melquiades Brown RN; for sedation; 9:59:16 Use device set Femoral Dx 9:59:22 Fentanyl 100 mcg I.V. was administered by Melquiades Brown RN; for sedation; 9:59:43 ACIST Syringe (74818) opened to sterile field. 9:59:44 Bag Decanter (2002S) opened to sterile field. 9:59:45 Medline Cath Pack ([id number]) opened to sterile field. 9:59:47 DIAGNOSTIC WIRE .035 260cm J wire (418582) opened to sterile field. 9:59:49 ACIST Hand Control (84427) opened to sterile field. 9:59:50 ACIST Manifold (50923) opened to sterile field. 9:59:52 Tegaderm 4 x 4 (1626W) opened to sterile field. 9:59:56 PERCUTANEOUS ENTRY 19GA needle opened to sterile field. 10:01:56 Procedure started. 10:01:56 Full Disclosure recording started 10:02:05 Zero performed for pressure channel P1 10:02:15 Zero performed for pressure channel P1 10:03:10 Local anesthetic to right femoral artery with Lidocaine 2% by Johnathon Oseguera MD.INITIAL ACCESS ONLY 10:03:14 Versed 2 mg I.V. was administered by Melquiades Brown RN; for sedation; 10:04:17 A 6 Fr Short sheath was inserted into the Right Femoral artery 10:04:21 SHEATH 6FR Bloomingrose (YNV448) opened to sterile field. 10:05:02 A DIAGNOSTIC UF 5Fr catheter ([id number]) was advanced over the wire and used for Procedure. 10:05:38 UF inserted for femoral runoff 10:05:48 Abdominal angiogram w/ runoff was performed. 10:07:20 Left leg runoff performed. 10:07:21 Right leg runoff performed. 10:07:32 Catheter removed. 10:07:59 GUIDE 6FR XBLAD 3.5 catheter ([id number]) opened to sterile field. 10:08:00 INFLATOR Merit BasixCompak (UM9586) opened to sterile field. 10:08:24 6 Fr XBLAD3.5 guide catheter was inserted over the wire 10:10:59 Heparin Bolus 4000 units I.V. was administered by Melquiades Lorigan RN; for anticoagulation; 10:11:13 CHOICE PT Extra Support 182cm wire ([id number]) opened to sterile field. 10:11:44 Inflation Number: 1 A CARLOS RX 3.0 x 18 stent ([id number]) was prepped and advanced across the Mid LAD. The stent was deployed at 23 CIARRA for 0:06 (min:sec). 10:12:01 Inflation number: 2 The stent balloon was then re-inflated across the Mid LAD to 0 CIARRA for 0:09 (min:sec). 10:12:21 Inflation number: 3 The stent balloon was then re-inflated across the Mid LAD to 7 CIARRA for 0:08 (min:sec). 10:12:59 Guide catheter removed. 10:16:19 Inflation Number: 4 A CARLOS RX 2.5 x 12 stent ([id number]) was prepped and advanced across the Mid LAD. The stent was deployed at 11 CIARRA for 0:14 (min:sec). 10:16:30 EXOSEAL 6Fr (EX600) opened to sterile field. 10:16:35 Wire removed. 10:16:36 Guide catheter removed. 10:16:49 Sheath removed intact; hemostasis achieved with Exoseal to the Right Femoral artery. 10:16:51 Procedure ended.(Physican Out) 10:17:06 Fluoroscopy time 03.50 minutes. 10:17:10 Fluoroscopy dose: 416 mGy 10:17:10 Flurop Dose total: 416 10:17:26 Contrast amount:Isovue 300 104ml. 10:17:31 Insertion/operative site no bleeding no hematoma. 10:17:34 Post-op/insertion site Right Femoral artery dressed using a 4 x 4 and Tegaderm. 10:17:37 Post Procedure Pulses reassessed and unchanged 10:17:41 Post-procedure physical assessment completed. ASA score P 2 - A patient with mild systemic disease as per Johnathon Oseguera MD. 10:17:45 Post procedure rhythm: unchanged. 10:17:49 Estimated blood loss: 10 ml 10:17:50 Post procedure instruction explained to patient.Patient verbalizes understanding. 10:18:32 Procedure type changed to Cath procedure, Diagnostic procedure, Sedation Charges, Moderate Sedation up to 15 minutes, PCI procedure, Coronary Stent, Coronary Stent Initial, Peripheral Cath Diagnostic Procedure, Cath Peripheral, Wmbvi-Qknrjam-Nvz-Off 10:18:33 Procedure and supply charges have been captured, reviewed, submitted and are correct. 10:19:29 Procedure Complication : No complications 10:19:32 Vital chart was stopped 10:19:33 See physician's report for complete and final results. 10:19:35 Report given to Pre/Post Procedure Room. 10:19:40 Patient transfered to Pre/Post Procedure Room with Stretcher. 10:19:42 Procedure ended. 10:19:42 Full Disclosure recording stopped 10:19:45 End room use (Document Last) Intervention Summary Intervention Notes Time ActionType Lesion and Equipment Used Action# Pressure Duration Attributes 10:11:44 Place stent Mid LAD CARLOS RX 3.0 x 1 23 00:06 18 stent ([id number]) 10:12:01 Reinflate Mid LAD CARLOS RX 3.0 x 2 0 00:09 stent 18 stent balloon ([id number]) 10:12:21 Reinflate Mid LAD CARLOS RX 3.0 x 3 7 00:08 stent 18 stent balloon ([id number]) 10:16:19 Place stent Mid LAD CARLOS RX 2.5 x 4 11 00:14 12 stent ([id number]) Device Usage Item Name Manufacture Quantity Catalog Number Hospital Part Current M inimal Lot# / Charge Number Stock Stock Serial# Code ACIST Syringe Acist 1 09642 365302 [id number] [id number] 2 0 (88780) Medical Systems Inc Bag Decanter Microtek 1 2001S 563652 45789 247280 5 () Medical Inc. Medline Cath Cardinal 1 [id number] 936472 63518 213296 5 [facility] ([id number]) DIAGNOSTIC [facility] [place] 1 705758 555086 311028 178349 3 0 WIRE .035 260cm J wire (101633) ACIST Hand Acist 1 35627 225439 530356 613283 5 Control Medical (15247) Systems Inc ACIST Manifold Acist 1 44641 351198 322909 695180 5 (39836) Medical Systems Inc Tegaderm 4 x 4 3M 1 1626W 021878 359150 658414 5 (1626W) PERCUTANEOUS Cook Medical 1 [id number] 298266 134321 5 ENTRY 19GA needle SHEATH 6FR Terumo 1 WRN430 813624 813008 374705 4 0 Bloomingrose (IRN513) DIAGNOSTIC UF Cardinal 1 [id number] 703811 231350 022749 1 0 5Fr catheter Health (095304V9) GUIDE 6FR Cardinal 1 [id number] 475732 443995 953575 1 0 XBLAD 3.5 Health catheter (31555996) INFLATOR Merit Merit 1 KT4157 043125 492172 130877 1 5 [facility] (QS7296) CHOICE PT [place] 1 [id number] 215142 708608 483468 5 Extra Support Scientific 182cm wire ([id number]) CARLOS RX 3.0 x Medtronic 1 [id number] 436042 4378793 461076 5 [id number] 18 stent ([id number]) CARLOS RX 2.5 x Medtronic 1 [id number] 824027 1256550 689356 5 [id number] 12 stent ([id number]) EXOSEAL 6Fr Cardinal 1 EX600 635527 664167 171030 1 0 (EX600) Health Signature Audit [place] Stage Time Signature Unsigned Intra-Procedure 07/06/2017 Allison Hagan 10:20:15 AM RT(R) Signatures Monitor : Allison Hagan Signature : RT Date : Time : [address] [address]
[~2017-07-06 07:39] MED LIST changes: +COREG 3.1253.125 MG PO; +XANAX0.5 MG PO
[2017-07-06 08:05] VITALS: BP 107/63; BMI 21.3
[2017-07-06 08:17] LABS: BASOPHILS 0.2 % (0-2); EOSINOPHILS 1.1 % (0-7); HEMOGLOBIN 14.9 g/dL (13.5-17.5); IMMATURE GRANULOCYTES 0.1 % (0-5); LYMPHOCYTES 31.3 % (15-50); MCH 33.3 pg (26.0-34.0); MCHC 33.9 g/dL (31.0-37.0); MCV 98.2 fL (80.0-100.0); MEAN PLATELET VOLUME 10.7 fL (7.4-10.4); MONOCYTES 10.1 % (2-11); NEUTROPHILS 57.2 % (40-80); RBC 4.48 10x6/uL (4.20-6.10); RDW 13.4 % (11.5-14.5); WBC 8.5 10x3/uL (4.8-10.8)
[2017-07-06 08:18] LABS: PLATELET COUNT 179 10x3/uL (130-400)
[2017-07-06 08:24] LABS: CALC OSMOLALITY 284 mosm/kg (275-300); CALCIUM 10.1 mg/dL (8.5-10.1); CARBON DIOXIDE 28.1 mmol/L (21.0-32.0); CHLORIDE - SERUM 107 mmol/L (98-107); CREATININE - SERUM 0.9 mg/dL (0.6-1.3); GLUCOSE 73 mg/dL (74-106); POTASSIUM - SERUM 4.4 mmol/L (3.5-5.1); SODIUM 144 mmol/L (136-145); UREA NITROGEN 9 mg/dL (7-18); eGFR NON AFRICAN AMERICAN 90 mL/min (90-120)
== END | disposition home or self-care (01) ==
LOC: D.CATH 07:39
PROVIDERS: Internal Medicine Interventional Cardiology
DX: I25.119 Atherosclerotic heart disease of native coronary artery with unspecified angina pectoris (principal); I70.219 Atherosclerosis of native arteries of extremities with intermittent claudication, unspecified extremity; I10 Essential (primary) hypertension; E78.5 Hyperlipidemia, unspecified; Z01.812 Encounter for preprocedural laboratory examination

== ENCOUNTER → 2017-11-18 08:48 | Outpatient (CLI) | payer OTHER ==
[2017-07-06 08:05] VITALS: BMI 21.3
[~2017-11-18 08:48] MED LIST changes: +CELEBREX200 MG PO; +HYDROCODON-ACE1 EAC7 PO; +NEURONTIN 300300 MG PO
== END | disposition home or self-care (01) ==
LOC: D.MRI 08:48
DX: M51.37 Other intervertebral disc degeneration, lumbosacral region (principal); M54.5 Low back pain

== ENCOUNTER 2018-01-02 07:57 | Emergency (ER) | payer MEDICARE, OTHER ==
[~2018-01-02] VITALS: Ht 175.3 cm; Wt 65.9 kg
[~2018-01-02 07:57] MED LIST changes: -CELEBREX200 MG PO; -HYDROCODON-ACE1 EAC7 PO; -NEURONTIN 300300 MG PO
[2018-01-02 08:02] VITALS: Ht 175.3 cm; Wt 65.9 kg
[2018-01-02] MEDS ORDERED: NEURONTIN 300300 MG PO (08:36)
[2018-01-02] MEDS ORDERED: CELEBREX200 MG PO (08:36)
[2018-01-02] MEDS ORDERED: HYDROCODON-ACE1 EAC7 PO (08:36)
[2018-01-02 10:19] VITALS: BP 142/68
== END 2018-01-02 10:21 | disposition home or self-care (01) ==
LOC: D.ER 07:57
DX: M48.061 Spinal stenosis, lumbar region without neurogenic claudication (principal); M51.36 Other intervertebral disc degeneration, lumbar region; M54.30 Sciatica, unspecified side; I25.810 Atherosclerosis of coronary artery bypass graft(s) without angina pectoris; I73.9 Peripheral vascular disease, unspecified; Z85.528 Personal history of other malignant neoplasm of kidney